=== PATIENT | male | born 1965 | race Caucasian/White ===

== ENCOUNTER 2023-05-22 23:22 | Inpatient (IN) ==
--- OUTSIDE RECORDS SUMMARY | 2023-05-22 23:25 | External Medical Summary | Summary of Care ---
Author Name Unknown Organization [facility] Address [address] [facility] [place] [address] Phone [phone] Care Team Providers Care Pre Algebra Teacher Name Role Phone Dionicio Foss MD Primary Care P rovider Reason for Visit * Reason Comments Cough Productive. Started 3-4 days ago Sore Throat Ear Pain Right ear pain and f eels clogged. Conjunctivitis Bilateral eyes caked with green matter yesterday and today Encounter Details Date Type Department Care Team (Latest Contact Info) Description 01/17/2023 10:20 AM EDT Office Visit [facility] [address] [place] [address] Jenny Womack PA-C [address] [place] [address] Single episode of hypertension*; Acute conjunctivitis, unspecified acute conjunctivitis type, unspecified laterality; Upper respiratory tract infection, unspecified type; Acute sinusitis, recurrence not specified, unspecified location Allergies Active Allergy Reactions Criticality Noted Date Comments Amoxicillin Rash 05/21/2016 Tooth infection and after a few doses broke out in a rash documented as of this encounter (statuses as of 01/17/2023) Medications Medication Sig Dispensed Refills Start Date End Date Status Sildenafil Citrate 20 MG Oral Tablet (Revatio) May take up to 5 tabs daily. 90 Tablet 6 01/21/2022 Active Erythromycin 5 MG/GM Ophthalmic OintmentIndications :Acute conjunctivitis, unspecified acute conjunctivitis type, unspecified laterality Instill into eye 4 times a day for 10 days. Apply to affected eye(s) until redness and discharge resolved. 1 g 0 01/17/2023 3 Active Doxycycline Hyclate 100 MG Oral CapsuleIndications: Acute sinusitis, recurrence not specified, unspecified location Take 1 Capsule by mouth in the morning and 1 Capsule before bedtime. Do all this for 7 days. Until gone.. 14 Capsule 0 01/17/2023 3 Active methylPREDNISolone 4 MG Oral Tablet Therapy Pack (Medrol Dosepack)Indication s:Acute sinusitis, recurrence not specified, unspecified location follow package directions 21 Tablet 0 01/17/2023 Active Varenicline Tartrate 0.5 MG X 11 & 1 MG X 42 OralIndications:Cig arette nicotine dependence with other nicotine-induced disorder Take as directed on box. 1 Each 0 01/01/2022 3 Discontinue d(Medicatio n List Clean Up) Varenicline Tartrate 1 MG Oral TabletIndications:C igarette nicotine dependence with other nicotine-induced disorder Take by mouth 1 Tablet in the morning AND 1 Tablet before bedtime. As directed on box.. 60 Tablet 4 01/01/2022 3 Discontinue d(Medicatio n List Clean Up) Cyclobenzaprine HCl 10 MG Oral Tablet (Flexeril)Indicatio ns:DDD (degenerative disc disease), cervical,Central stenosis of spinal canal TAKE 1 TABLET BY MOUTH TWICE DAILY NEEDED FOR MUSCLE SPASMS 60 Tablet 5 06/07/2022 3 Discontinue d(Medicatio n List Clean Up) methylPREDNISolone 4 MG Oral Tablet Therapy Pack (Medrol Dosepack)Indication s:ETD (Eustachian tube dysfunction), right follow package directions 21 Tablet 0 10/12/2022 3 Discontinue d(Medicatio n List Clean Up) Fluticasone Propionate 50 MCG/ACT Nasal Suspension (Flonase)Indication s:ETD (Eustachian tube dysfunction), right Administer 2 Sprays into each nostril in the morning. 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 12/31/2020 Nicotine dependence 12/31/2020 Erectile dysfunction after radical prostatectomy 12/31/2020 Malignant neoplasm of prostate 06/25/2019 Cancer Staging:Pathologic stage from 09/12/2019:Stage IIIB(pT3b, pN0, cM0, PSA: 7.5, Grade Group: 3) - Signed by Lc Sutton MD on 07/13/2021 Clinical: Unsigned Tobacco use disorder 10/23/2010 ADVANCE DIRECTIVE INFORMATION 07/20/2006 Overview: Pt declines documented as of this encounter (statuses as of 01/17/2023) Immunizations Name Administration Dates Next Due COVID-19 mRNA, LNP-s, No Pre serve, 2-Dose Series (Moderna) 06/03/2020,05/06/2020 Pneumococcal Polysaccharide PPV23 (Pneumovax) 06/30/2020 SEASONAL INFLUENZA, PF, 6 M & Above, IM , (FLULAVAL or FLUZONE) 01/01/2022,12/31/2020,02/14/2019 TDAP (age 10 and older)(Boostrix) 07/15/2014 Zoster Vaccine Recombinant (Shingrix) 12/31/2020 ,06/30/2020 documented as of this encounter Social History Tobacco Use Types Packs/Day Years Used Date Smoking Tobacco: Every Day Cigarettes 1 30 Smokeless Tobacco: Former Quit: 1999 Tobacco Cessation:Ready to Q uit: No; Counseling Given: No Alcohol Use Standard Drinks/Week Comments Yes 0 (1 standard drink = 0.6 oz pur e alcohol) social Sex and Gender Information Value Date Recorded Sex Assigned at Not on file Gender Identity Not on file Sexual Orientation Not on file Job Start Date Occupation Industry Not on file Not on file Not on file documented as of this encounter Last Filed Vital Signs Vital Sign Reading Time Taken Comments Blood Pressure 150/90 01/17/2023 10:24 AM EDT Pulse 94 01/17/2023 10:24 AM EDT Temperature 36.9 C (98.4 F) 01/17/2023 10:24 AM E DT Respiratory Rate 20 01/17/2023 10:24 AM EDT Oxygen Saturation 99% 01/17/2023 10:24 AM EDT Inhaled Oxygen Concentration - - Weight 75.8 kg (167 lb 1.1 oz) 01/17/2023 10:24 AM EDT Height - - Body Mass Index 26.17 11/27/2021 2:12 PM EDT documented in this encounter Functional Status Functional Status Response Date of Assess ment Are you deaf or do you have serious difficulty h earing? No 08/10/2019 Are you blind or do you have serious difficulty seeing, even when wearing glasses? No 08/10/2019 Do you have serious difficul ty walking or climbing stairs? (5 years old or older) No 08/10/2019 Do you have difficulty dress ing or bathing? (5 years old or older) No 08/10/2019 Because of a physical, menta l, or emotional condition, do you have difficulty doing errands alone such as visiting a doctor s office or shopping? (15 years old or older) No 08/10/19 20 Cognitive Status Response Date of Assessm ent Because of a physical, menta l, or emotional condition, do you have serious difficulty concentrating, remembering, or making decisions? (5 years old or older No 08/10/2019 documented as of this encounter Progress Notes * Jenny Womack PA-C - 01/17/2023 10:46 AM EDT Subjective: Leo Mercer is a 57 year old male. Chief Complaint Patient presents with Cough Productive. Started 3-4 days ago Sore Throat Ear Pain Right ear pain and feels clogged. Conjunctivitis Bilateral eyes caked with green matter yesterday and today HPI: Patient presents today for acute visit URI symptoms began 5 days ago with sore throat. Productive cough with green sputum Denies fevers or chills Pain in right ear Patient reports discharge from left eye this morning. Denies any visual changes or pain with extraocular motion. Reports symptoms feel similar to sinus infection in spring Patient reports symptoms, particularly sinus pressure have gotten progressively worse. Has been taking mucinex with minimal relief Denies N/V/D. Sick contacts: none known Patient reports he is soon leaving for hunting PMH: Patient Active Problem List Diagnosis Code ADVANCE DIRECTIVE INFORMATION Tobacco use disorder F17.200 Malignant neoplasm of prostate (HCC) C61 Traumatic amputation of tip of finger S68.119A Ganglion cyst of wrist, left M67.432 Spondylosis of cervical region without myelopathy or radiculopathy M47.812 Nicotine dependence F17.200 Erectile dysfunction after radical prostatectomy N52.31 Overweight (BMI 25.0-29.9) E66.3 Hiatal hernia K44.9 History of radical prostatectomy Z90.79 Current Outpatient Medications Medication Sig Dispense Refill Sildenafil Citrate 20 MG Oral Tablet (Revatio) May take up to 5 tabs daily. 90 Tablet 6 No current facility-administered medications for this visit. Review of patient's allergies indicates: Allergen Reactions Amoxicillin Rash Tooth infection and after a few doses broke out in a rash Objective: BP 150/90 | Pulse 94 | Temp 36.9 C (98.4 F) (Infrared ) | Resp 20 | Wt 75.8 kg (167 lb 1.1 oz) | SpO2 99% | BMI (P) 26.17 kg/m | BSA (P) 1.89 m Head: Normocephalic, No masses, lesions, tenderness or abnormalities Nose: no mucosal erythema, no mucosal edema, no purulent discharge Oropharynx: no exudate, no erythema, lips, buccal mucosa, and tongue normal, and mucous membranes are moist Ears: L TM clear with good light reflex. R TM slightly erythematous with good light reflex. Neck: supple, no adenopathy, thyroid normal size, non-tender, without nodularity Heart: regular rate & rhythm, no murmur, and no gallops Lungs: chest symmetric with normal AP diameter, no chest deformities noted, no chest wall tenderness, lungs clear to auscultation ASSESSMENT: Single episode of hypertension (Primary) Acute conjunctivitis, unspecified acute conjunctivitis type, unspecified laterality - Erythromycin 5 MG/GM Ophthalmic Ointment; Instill into eye 4 times a day for 10 days. Apply to affected eye(s) until redness and discharge resolved. Upper respiratory tract infection, unspecified type Acute sinusitis, recurrence not specified, unspecified location - Doxycycline Hyclate 100 MG Oral Capsule; Take 1 Capsule by mouth in the morning and 1 Capsule before bedtime. Do all this for 7 days. Until gone.. - methylPREDNISolone 4 MG Oral Tablet Therapy Pack (Medrol Dosepack); follow package directions Follow Up: Return if symptoms worsen or fail to improve, for BP Check in 2 Weeks. | For: BP Check in 2 Weeks Plan: Symptoms consistent with acute sinusitis. We will treat with doxycycline as patient has allergy to amoxicillin. Patient reports he is soon leaving for a hunting trip and is requesting steroid as well. Medrol Dosepak ordered. Given patient's eye discharge, we will give her erythromycin. Strict follow-up instructions given. Patient hypertensive in office today. He denies any history of hypertension. This may be due to hisillness. Encouraged patient to check BP at home and notify us if persistently high. Patient to schedule for BP check in 2 weeks. Patient declines to schedule low dose CT for lung cancer screening at this time. Jenny Womack PA-C documented in this encounter Nursing Notes * Aurora Bhatia LPN - 01/17/2023 10:25 AM EDT The patient has been properly identified by confirmation of name and date of . Chief Complaint Patient presents with Cough Productive. Started 3-4 days ago Sore Throat Ear Pain Right ear pain and feels clogged. Conjunctivitis Bilateral eyes caked with green matter yesterday and today Denies fever or chills Using Mucinex and Tylenol Patient has been verbally educated on the need or importance of Immunizations: pnx,flu documented in this encounter Plan of Treatment Upcoming Encounters Date Type Department Care Team (Late st Contact Info) Description 03/04/2023 12:00 PM EST Telemedicine Urology, [place] [address] [place] [address] Ray Wong PA-C [address] [place] [address] Scheduled Procedures Name Priority Associated Diagnoses Date/Ti me COLONOSCOPY FLEXIBLE PROXIMA L DIAGNOSTIC Recall Encounter for screening colonoscopy Health Maintenance Due Date Last Done Comments Hepatitis B (1 of 3 - 3-dose series) 1964 Cologuard 2009 Fecal Occult Blood Test 2009 Sigmoidoscopy 2009 LUNG CANCER SCREENING - USE SMARTSET 52755 2014 Pneumococcal Vaccine: Pediatrics (0 to 5 Years) and At-Risk Patients (6 to 64 Years) (2 - PCV) 06/30/2021 06/30/2020 COVID-19 Vaccine (3 - 2022- season) 2022 06/03/2020, 05/06/2020 Influenza Vaccine (FLU shot) (#1) 2022 01/01/2022, 12/31/2020, 02/14/2019 Depression Screening 01/01/2023 01/01/2022 Diabetes Screening 01/01/2024 12/31/2020, 0 08/11/2019, 08/10/2019, Additional history exists DTaP,Tdap,and Td Vaccines (2 - Td or Tdap) 07/15/2024 07/15/2014 Lipid Panel 12/31/2025 12/31/2020, 11/27, 08/19/2011, Additional history exists Colonoscopy 01/05/2026 01/06/2016, 01/06/2016 Colorectal Cancer Screening 01/05/2026 Zoster Vaccines Completed 12/31/2020, 06/30/2020 GARDASIL-HPV IMMUNIZATION SERIES Aged Out No longer eligible based on patient's age to complete this topic MENINGOCOCCAL (MENACTRA/MENVEO) Aged Out No longer eligible based on patient's age to complete this topic documented as of this encounter Medical Devices Not on filedocumented as of this encounter Visit Diagnoses Diagnosis Single episode of hypertension- Primary Unspecified essential hypertension Acute conjunctivitis, unspecified acute conjunctivitis type, unspecified laterality Upper respiratory tract infection, unspecified type Acute sinusitis, recurrence not specified, unspecified location documented in this encounter Advance Directives Latest Code Status on File Code Status Date Activated Date Inactivated Comments Full Code 08/10/2019 1:48 PM 08/11/2019 6:39 PM Question Answer Comments Discussion of Advance Direct sal occurred with: Not Discussed Care Teams Pre Algebra Teacher Relationship Specialty Start Date End Date Dionic[place] [address] PCP - General Family Medicine 11/27/21 documented as of this encounter"
--- OUTSIDE RECORDS SUMMARY | 2023-05-22 23:25 | External Medical Summary ---
Author Name Unknown Address Unknown Organization K01:[facility] [address] [place] [address] Laboratory Report Ordering Provider Test Date Status MCKINLEY RECIO 03/01/2023 09:19:06 Final Observation Date Value Abnormality Reference (Units ) Status PSA 03/01/2023 09:19:06 0.02 <3.10 (ng/ mL) Final Performing Location [facility] [address] [place] [address]
--- OUTSIDE RECORDS SUMMARY | 2023-05-22 23:25 | External Medical Summary | Summary of Care ---
Author Name Unknown Organization [facility] Address [address] [facility] [place] [address] Phone [phone] Care Team Providers Care Engine Emission Technician Name Role Phone Dionicio Foss MD Primary Care P rovider Reason for Visit * Reason Comments Acute C/o sore throat, con gestion and slight cough x 3 days.No fever or chills.Using Mucinex today. Encounter Details Date Type Department Care Team ([facility] Contact Info) Description 02/24/2023 1:10 PM EST Office Visit [address] [address] Madelyn Watson PA-C [address] [place] [address] [id number] Sinobronchitis* Allergies Active Allergy Reactions Criticality Noted Date Comments Amoxicillin Rash 05/21/2016 Tooth infection and after a few doses broke out in a rash documented as of this encounter (statuses as of 02/24/2023) Medications Medication Sig Dispensed Refills Start Date End Date Status Sildenafil Citrate 20 MG Oral Tablet (Revatio) May take up to 5 tabs daily. 90 Tablet 6 01/21/2022 Active Ciprofloxacin HCl 500 MG Oral Tablet (Cipro)Indication s:Sinobronchitis Take 1 Tablet by mouth in the morning and 1 Tablet before bedtime. Do all this for 10 days. 20 Tablet 0 02/24/2023 03/06/2023 Active methylPREDNISolon e 4 MG Oral Tablet Therapy Pack (Medrol Dosepack)Indicati ons:Acute sinusitis, recurrence not specified, unspecified location follow package directions 21 Tablet 0 01/17/2023 02/24/2023 Discontinue d(Medicatio n List Clean Up) documented as of this encounter (statuses as of 02/24/2023) Active Problems Problem Noted Date Diagnosed Date [...] as of this encounter (statuses as of 02/24/2023) Immunizations Name Administration Dates Next Due COVID-19 [...] = 0.6 oz pur e alcohol) social PHQ-2 Answer Date Recorded PHQ Adult Total Score 0 01/01/2022 Hunger Vital Sign Answer Date Recorded Worried About Running Out of Food in the Last Ye ar Never true 04/16/2019 Ran Out of Food in the Last Year Never true 04/16/2019 Sex and Gender Information Value Date Recorded Sex Assigned at Not on file Gender Identity Not on file Sexual Orientation Not on file Job Start Date Occupation Industry Not on file Not on file Not on file documented as of this encounter Last Filed Vital Signs Vital Sign Reading Time Taken Comments Blood Pressure 160/96 02/24/2023 6:05 PM EST Pulse 92 02/24/2023 6:05 PM EST Temperature 36.7 C (98.1 F) 02/24/2023 6:05 PM ES T Respiratory Rate 18 02/24/2023 6:05 PM EST Oxygen Saturation 99% 02/24/2023 6:05 PM EST Inhaled Oxygen Concentration - - Weight 77.3 kg (170 lb 6.4 oz) 02/24/2023 6:05 P M EST Height - - Body Mass Index 26.69 11/27/2021 2:12 PM EDT documented in this [...] or making decisions? (5 years old or older) No 08/10/2019 documented as of this encounter Progress Notes * Madelyn Watson PA-C - 02/24/2023 6:16 PM EST Images from the original note were not included. History of Present Illness Leo Mercer is a 57 year old male that presents for Acute (C/o sore throat, congestion and slight cough x 3 days./No fever or chills./Using Mucinex today. ) Pt states that he started with sore throat last . Pt then started with cough and congestion. Pt states that he is having productive cough as well as sinus pain and pressure. Pt states that hedid have a fever, but that seems to have improved. Pt denies any shortness of breath. Pt does have a headache. Pt did take Mucinex today. Pt was seen on 02/01 for similar symptoms and given Cipro and Prednisone which seemed to help but symptoms now back. Ciprofloxacin HCl 500 MG Oral Tablet (Cipro) Sildenafil Citrate 20 MG Oral Tablet (Revatio) Review of patient's allergies indicates: Allergen Reactions Amoxicillin Rash Tooth infection and after a few doses broke out in a rash Patient Active Problem List Diagnosis Date Noted Overweight (BMI 25.0-29.9) [E66.3] 01/01/2022 Hiatal hernia [K44.9] 01/01/2022 History of radical prostatectomy [Z90.79] 01/01/2022 Traumatic amputation of tip of finger [S68.119A] 12/31/2020 Ganglion cyst of wrist, left [M67.432] 12/31/2020 Spondylosis of cervical region without myelopathy or radiculopathy [M47.812] 12/31/2020 Nicotine dependence [F17.200] 12/31/2020 Erectile dysfunction after radical prostatectomy [N52.31] 12/31/2020 Malignant neoplasm of prostate (HCC) [C61] 06/25/2019 Tobacco use disorder [F17.200] 10/23/2010 ADVANCE DIRECTIVE INFORMATION 07/20/2006 Pt declines Social History Socioeconomic History Marital status: Single Spouse name: Not on file Number of children: Not on file Years of education: Not on file Highest education level: Not on file Occupational History Not on file Tobacco Use Smoking status: Every Day Packs/day: 1.00 Years: 30.00 Additional pack years: 0.00 Total pack years: 30.00 Types: Cigarettes Smokeless tobacco: Former Quit date: 1999 Vaping Use Vaping Use: Never used Substance and Sexual Activity Alcohol use: Yes Comment: social Drug use: No Sexual activity: Yes Partners: Female Other Topics Concern Not on file Social History Narrative Not on file Social Determinants of Health Financial Resource Strain: Not on file Food Insecurity: No Food Insecurity (04/16/2019) Hunger Vital Sign Worried About Running Out of Food in the Last Year: Never true Ran Out of Food in the Last Year: Never true Transportation Needs: Not on file Physical Activity: Not on file Stress: Not on file Social Connections: Not on file Intimate Partner Violence: Not on file Housing Stability: Not on file Past Surgical History: Procedure Laterality Date BILAT TOT PEL LYMPHADENECTOMY N/A 08/10/2019 ROBOTIC LAPAROSCOPIC TOTAL PELVIC LYMPHADENECTOMY performed by Lc Sutton MD at [facility] COLONOSCOPY, DIAGNOSTIC (RECTUM) 01/06/2016 normal, repeat 10 yrs/COLONOSCOPY FLEXIBLE PROXIMAL DIAGNOSTIC performed by Dee Kaur DO at [facility] PROSTATECTOMY, RETROPUBIC RADICAL, LAP N/A 08/10/2019 ROBOTIC LAPAROSCOPIC PROSTATECTOMY RETROPUBIC RADICAL performed by Lc Sutton MD at [place] [facility] No family history on file. Review of Systems Constitutional: Positive for fatigue and fever. HENT: Positive for congestion, postnasal drip, sinus pressure and sinus pain. Respiratory: Positive for cough and chest tightness. Cardiovascular: Negative. Gastrointestinal: Negative. Genitourinary: Negative. Physical Exam BP 160/96 | Pulse 92 | Temp 36.7 C (98.1 F) (Infrared ) | Resp 18 | Wt 77.3 kg (170 lb 6.4 oz) | SpO2 99% | BMI (P) 26.69 kg/m | BSA (P) 1.91 m Physical Exam Constitutional: Appearance: Normal appearance. HENT: Right Ear: Tympanic membrane normal. Left Ear: Tympanic membrane normal. Nose: Congestion present. Mouth/Throat: Pharynx: Posterior oropharyngeal erythema present. Cardiovascular: Rate and Rhythm: Normal rate and regular rhythm. Pulmonary: Effort: Pulmonary effort is normal. Breath sounds: Normal breath sounds. Neurological: Mental Status: He is alert. Recheck 144/84 I have reviewed most recent labs BMP Assessment and Plan Sinobronchitis - Ciprofloxacin HCl 500 MG Oral Tablet (Cipro); Take 1 Tablet by mouth in the morning and 1 Tablet before bedtime. Do all this for 10 days. Lots of fluids, rest and OTC plain Mucinex. Wrap-Up Time: I spent a total of 20-29 minutes (exact time 20 mins) on the date of service in preparation, delivery, and documentation of the care provided to Leo Mercer excluding any time spent in the performance of separately billed services. documented in this encounter Nursing Notes * Aurora Bhatia LPN - 02/24/2023 6:05 PM EST The patient has been properly identified by confirmation of name and date of . Chief Complaint Patient presents with Acute C/o sore throat, congestion and slight cough x 3 days. No fever or chills. Using Mucinex today. Patient has been verbally educated on the need or importance of Immunizations: hepb,flu documented in this encounter Plan of Treatment Upcoming Encounters Date Type Department Care Team (Late st Contact Info) Description 03/04/2023 12:00 PM EST Telemedicine Urology, [place] [address] [place] [address] Ray Wong PA-C [address] [place], [place] [phone] Scheduled Procedures Name Priority Associated Diagnoses Date/Ti me COLONOSCOPY FLEXIBLE PROXIMA L DIAGNOSTIC Recall Encounter for screening colonoscopy Health Maintenance Due Date Last Done Comments Hepatitis B (1 of 3 - 3-dose series) 1965 Cologuard 2009 Fecal Occult Blood Test 2009 Sigmoidoscopy 2009 LUNG CANCER SCREENING - USE SMARTSET 75059 2014 Pneumococcal Vaccine: Pediatrics (0 to 5 Years) and At-Risk Patients (6 to 64 Years) (2 - PCV) 06/30/2021 06/30/2020 COVID-19 Vaccine (3 - 2022-24 season) 2022 06/03/2020, 05/06/2020 Influenza Vaccine (FLU [...] as of this encounter Visit Diagnoses Diagnosis Sinobronchitis- Primary Unspecified sinusitis (chronic) documented in this encounter Advance Directives Latest Code Status on File Code Status Date Activated Date Inactivated Comments Full Code 08/10/2019 1:48 PM 08/11/2019 6:39 PM Question Answer Comments Discussion of Advance Direct sal occurred with: Not Discussed Care Teams Engine Emission Technician Relationship Specialty Start Date End Date Dionicio Foss MD [address] [place] [address] [place] [address] PCP - General Family Medicine 11/27/21 documented as of this encounter"
--- OUTSIDE RECORDS SUMMARY | 2023-05-22 23:25 | External Medical Summary | Summary of Care ---
Author Name Unknown Organization [facility] Address [address] [place] [address] Phone [phone] Care Team Providers Care High Scaler Name Role Phone Dionicio Parkinson MD Primary Care P rovider Encounter Details Date Type Department Care Team (Late st Contact Info) Description 03/04/2023 12:00 PM EST [facility] [address], [place] [id number] Ray Wong PA-C [address], [place] [id number] Prostate cancer (HCC)* Allergies Active Allergy Reactions Criticality Noted Date Comments Amoxicillin Rash 05/21/2016 Tooth infection and after a few doses broke out in a rash documented as of this encounter (statuses as of 03/06/2023) Medications Medication Sig Dispensed Refills Start Date End Date Status Sildenafil Citrate 20 MG Oral Tablet (Revatio) May take up to 5 tabs daily. 90 Tablet 6 01/21/2022 Active Ciprofloxacin HCl 500 MG Oral Tablet (Cipro)Indications:S inobronchitis Take 1 Tablet by mouth in the morning and 1 Tablet before bedtime. Do all this for 10 days. 20 Tablet 0 02/24/2023 03/06/2023 Active documented as of this encounter (statuses as of 03/06/2023) Active Problems Problem Noted Date Diagnosed Date [...] as of this encounter (statuses as of 03/06/2023) Immunizations Name Administration Dates Next Due COVID-19 [...] 1 30 Smokeless Tobacco: Former Quit: 1999 Alcohol Use Standard Drinks/Week Comments Yes 0 [...] on file documented as of this encounter Functional Status Functional Status Response [...] as of this encounter Progress Notes * Ray Wong PA-C - 03/04/2023 12:04 PM EST After connecting to the patient via telephone, the patient was identified by name and date of . Patient was then informed that this was a telephone call only visit. The patient agreed to participate. Visit Disposition: Routine follow-up Total call duration was 7 minutes. UROLOGY PROGRESS NOTE Name: Leo Mercer Location: Telephone Date: 03/04/2023 Time: 12:04 PM PCP: DIONICIO PARKINSON [address] [place] [id number] Leo Mercer is a 57 year old male RTC in F/U for prostate cancer. I extensively reviewed the patient's record prior to the appointment. HPI: "The patient is s/p RALP/PLND in 07/2019 for [id number] GG3 prostate adenocarcinoma. PSA has remained undetectable since surgery. He has no urinary incontinence. He has had mixed results with PO PDE5i, and later tried Trimix with episode of priapism with first use. He has used it sparingly since. The patient denies gross hematuria, dysuria, or bothersome LUTS." Interval: 08/2022: Presents today for routine 6m follow up PSA recheck. Has been doing well, really no interval change in his medical history. PSA undetectable today. Still having some ED issues, managing with sildenafil with moderate results. Not interested in ICI at this time. Denies hematuria or UTI. 02/2023: Presents today for routine 6m follow up PSA recheck. Has been doing well, really no concerns today. Very minimal FLORENCIO, at baseline from previous visits. Not interested in treating ED at this time. PSA undetectable. No past medical history on file. Past Surgical History: Procedure Laterality Date BILAT TOT PEL LYMPHADENECTOMY N/A 08/10/2019 ROBOTIC LAPAROSCOPIC TOTAL PELVIC LYMPHADENECTOMY performed by Lc Sutton MD at [facility] COLONOSCOPY, DIAGNOSTIC (RECTUM) 01/06/2016 normal, repeat 10 yrs/COLONOSCOPY FLEXIBLE PROXIMAL DIAGNOSTIC performed by Dee Kaur DO at [facility] PROSTATECTOMY, RETROPUBIC RADICAL, LAP N/A 08/10/2019 ROBOTIC LAPAROSCOPIC PROSTATECTOMY RETROPUBIC RADICAL performed by Lc Sutton MD at [place] [facility] Social History Socioeconomic History Marital status: Single [...] on file Housing Stability: Not on file No family history on file. Current Outpatient Medications Medication Sig Dispense Refill Sildenafil Citrate 20 MG Oral Tablet (Revatio) May take up to 5 tabs daily. 90 Tablet 6 Ciprofloxacin HCl 500 MG Oral Tablet (Cipro) Take 1 Tablet by mouth in the morning and 1 Tablet before bedtime. Do all this for 10 days. 20 Tablet 0 No current facility-administered medications for this visit. Review of patient's allergies indicates: Allergen Reactions Amoxicillin Rash Tooth infection and after a few doses broke out in a rash ROS EXAM: CONSTITUTIONAL: No change in weight, No weakness, No fatigue and No fevers, sweats, or chills PULMONARY: No cough, No wheezing, No shortness of breath and No recent change in breathing CARDIOVASCULAR: No chest pain, No shortness of breath, No dyspnea on exertion, No edema GASTROINTESTINAL: No abdominal pain, No significant change in appetite and No nausea, vomiting, diarrhea, or constipation MALE: See HPI NEUROLOGIC: Normal balance and No weakness PHYSICAL EXAM: Telephonic visit Lab Results Component Value Date/Time PSA - [facility] 0.02 03/01/2023 09:19 AM PSA - [facility] <0.02 08/06/2022 07:57 AM PSA - [facility] <0.02 01/14/2022 07:52 AM PSA - [facility] <0.02 07/10/2021 08:00 AM PSA - [facility] <0.02 12/31/2020 08:31 AM PSA - [facility] <0.02 12/12/2020 08:49 AM PSA - [facility] <0.02 06/12/2020 09:06 AM PSA - [facility] <0.02 03/04/2020 07:42 AM PSA - [facility] <0.02 11/29/2019 07:52 AM PSA - [facility] <0.02 09/26/2019 08:21 AM PSA - [facility] 7.47 (H) 05/04/2019 09:10 AM I spent a total of 10-19 minutes (exact time 15 mins) on the date of service in preparation, delivery, and documentation of the care provided to Leo Mercer excluding any time spent in the performance of separately billed services. Impression: 1. 57 year old male with prostate cancer Plan: Discussed future management of prostate cancer. PSA has been undetectable since surgery, really no concerns at this time otherwise. Minimal FLORENCIO at baseline, may discuss ED treatment in the future. RTC 6 months with PSA or sooner prn. Pt in agreement. Ray oWng PA-C Department of Urology [facility] 03/04/2023 12:06 PM documented in this encounter Plan of Treatment Upcoming Encounters Date Type Department Care Team (Late st Contact Info) Description 09/09/2023 1:00 PM EDT Office Visit Urology, [place] [address] [place] [address] Ray Wong PA-C [address] [place] [address] Scheduled Orders Name Type Priority Associated Diagnoses Orde r Schedule PSA Lab Routine Prostate cancer (HCC) Expected: 09/03/2023, Expires: Scheduled Procedures Name Priority Associated Diagnoses Date/Ti me COLONOSCOPY FLEXIBLE PROXIMA L DIAGNOSTIC Recall Encounter for screening colonoscopy Health Maintenance Due Date Last Done Comments Hepatitis B (1 of 3 - 3-dose series) 1965 Cologuard 2009 Fecal Occult Blood Test 2009 Sigmoidoscopy 2009 LUNG CANCER SCREENING - USE SMARTSET 83350 2014 Pneumococcal Vaccine: Pediatrics (0 to 5 [...] as of this encounter Visit Diagnoses Diagnosis Prostate cancer (HCC)- Primary Malignant neoplasm of prostate documented in this encounter Advance Directives Latest Code Status on File Code Status Date Activated Date Inactivated Comments Full Code 08/10/2019 1:48 PM 08/11/2019 6:39 PM Question Answer Comments Discussion of Advance Direct sal occurred with: Not Discussed Care Teams High Scaler Relationship Specialty Start Date End Date Dionicio Parkinson MD [address] [place] [address] PCP - General Family Medicine 11/27/21 documented as of this encounter
--- OUTSIDE RECORDS SUMMARY | 2023-05-22 23:25 | External Medical Summary | Summary of Care ---
Author Name Unknown Organization [facility] Address [address] [facility] [place] [address] Phone [phone] Care Team Providers Care Byproducts Supervisor Name Role Phone Dionicio Foss MD Primary Care P rovider Reason for Visit * Reason Comments Congestion Cough Sinus Problem Encounter Details Date Type Department Care Team ([facility] Contact Info) Description 02/01/2023 1:00 PM EST Office Visit [facility] [address] [place] [address] Madelyn Watson PA-C [address] [place] [address] Sinobronchitis* Allergies Active Allergy Reactions Criticality Noted Date Comments Amoxicillin Rash 05/21/2016 Tooth infection and after a few doses broke out in a rash documented as of this encounter (statuses as of 02/01/2023) Medications Medication Sig Dispensed Refills Start Date End Date Status Sildenafil Citrate 20 MG Oral Tablet (Revatio) May take up to 5 tabs daily. 90 Tablet 6 01/21/2022 Active methylPREDNISolone 4 MG Oral Tablet Therapy Pack (Medrol Dosepack)Indicatio ns:Acute sinusitis, recurrence not specified, unspecified location follow package directions 21 Tablet 0 01/17/2023 Active Additional Information Patient not taking.Reported on 02/01/2023 Ciprofloxacin HCl 500 MG Oral Tablet (Cipro)Indications :Sinobronchitis Take 1 Tablet by mouth in the morning and 1 Tablet before bedtime. Do all this for 10 days. 20 Tablet 0 02/01/2023 02/11/2023 Active predniSONE 20 MG Oral Tablet (Deltasone)Indicat ions:Sinobronchiti s Take 2 Tablets by mouth in the morning for 5 days. 10 Tablet 0 02/01/2023 02/06/2023 Active documented as of this encounter (statuses as of 02/01/2023) Active Problems Problem Noted Date Diagnosed Date [...] as of this encounter (statuses as of 02/01/2023) Immunizations Name Administration Dates Next Due COVID-19 [...] Sign Reading Time Taken Comments Blood Pressure 142/86 02/01/2023 12:58 PM EST Pulse 82 02/01/2023 12:58 PM EST Temperature 36.9 C (98.5 F) 02/01/2023 12:[address] Respiratory Rate 16 02/01/2023 12:58 PM EST Oxygen Saturation 98% 02/01/2023 12:58 PM EST Inhaled Oxygen Concentration - - Weight 75.8 kg (167 lb) 02/01/2023 12:58 PM EST Height - - Body Mass Index 26.16 11/27/2021 2:12 PM EDT documented in this [...] Progress Notes * Madelyn Watson PA-C - 02/01/2023 1:20 PM EST Images from the original note were not included. History of Present Illness Leo Mercer is a 57 year old male that presents for Congestion, Cough, and Sinus Problem Pt states started with cough congestion and sinus pressure on Tuesday. Pt states that he does not seem to have any chest congestion. Pt states that he has a lot of sinus pressure. Pt denies fever. Pt was treated for Sinus infection on 01/17 with doxycycline and medrol dose bessy. Pt states that he felt much better but states that it started again on Tuesday. Cough Associated symptoms include postnasal drip. Sinus Problem Associated symptoms include congestion, coughing and sinus pressure. Ciprofloxacin HCl 500 MG Oral Tablet (Cipro) predniSONE 20 MG Oral Tablet (Deltasone) Sildenafil Citrate 20 MG Oral Tablet (Revatio) methylPREDNISolone 4 MG Oral Tablet Therapy Pack (Medrol Dosepack) Review of patient's allergies indicates: Allergen Reactions [...] LYMPHADENECTOMY performed by Lc Sutton MD at [facility] COLONOSCOPY, DIAGNOSTIC (RECTUM) 01/06/2016 normal, repeat 10 yrs/COLONOSCOPY FLEXIBLE PROXIMAL DIAGNOSTIC performed by Dee Kaur DO at [facility] PROSTATECTOMY, RETROPUBIC RADICAL, LAP N/A 08/10/2019 ROBOTIC LAPAROSCOPIC PROSTATECTOMY RETROPUBIC RADICAL performed by Lc Sutton MD at [place] [facility] No family history on file. Review of Systems HENT: Positive for congestion, postnasal drip and sinus pressure. Respiratory: Positive for cough. Cardiovascular: Negative. Gastrointestinal: Negative. Genitourinary: Negative. Physical Exam BP 142/86 | Pulse 82 | Temp 36.9 C (98.5 F) | Resp 16 | Wt 75.8 kg (167 lb) | SpO2 98% | BMI (P) 26.16 kg/m | BSA (P) 1.89 m Physical Exam Constitutional: Appearance: Normal appearance. HENT: Right Ear: Tympanic membrane is injected. Mouth/Throat: Mouth: Mucous membranes are dry. Pharynx: Oropharynx is clear. Cardiovascular: Rate and Rhythm: Normal rate and regular rhythm. Pulmonary: Effort: Pulmonary effort is normal. Breath sounds: Normal breath sounds. Neurological: Mental Status: He is alert. I have reviewed most recent labs None Assessment and Plan Sinobronchitis - Ciprofloxacin HCl 500 MG Oral Tablet (Cipro); Take 1 Tablet by mouth in the morning and 1 Tablet before bedtime. Do all this for 10 days. - predniSONE 20 MG Oral Tablet (Deltasone); Take 2 Tablets by mouth in the morning for 5 days. Lots of fluids. Continue OTC Mucinex. Wrap-Up Time: I spent a total of 20-29 minutes (exact time 20 mins) on the date of service in preparation, delivery, and documentation of the care provided to Leo Mercer excluding any time spent in the performance of separately billed services. documented in this encounter Nursing Notes * Eric Lindquist LPN - 02/01/2023 12:59 PM EST The patient has been properly identified by confirmation of name and date of . Chief Complaint Patient presents with Congestion Cough Sinus Problem documented in this encounter Plan of Treatment Upcoming Encounters Date Type Department Care Team (Late st Contact Info) Description 03/04/2023 12:00 PM EST Telemedicine Urology, [place] [address] [place] [address] Ray Wong PA-C [address] [place], [place] [phone] Scheduled Procedures Name Priority Associated Diagnoses Date/Ti me COLONOSCOPY FLEXIBLE PROXIMA L DIAGNOSTIC Recall Encounter for screening colonoscopy Health Maintenance Due Date Last Done Comments Hepatitis B (1 of 3 - 3-dose series) 1965 Cologuard 2009 Fecal Occult Blood Test 2009 Sigmoidoscopy 2009 LUNG CANCER SCREENING - USE SMARTSET 43232 2014 Pneumococcal Vaccine: Pediatrics (0 to 5 [...] sal occurred with: Not Discussed Care Teams Byproducts Supervisor Relationship Specialty Start Date End Date Dionicio Foss MD [address] [place], [place] [address] [id number] PCP - General Family Medicine 11/27/21 documented as of this encounter"
--- OUTSIDE RECORDS SUMMARY | 2023-05-22 23:25 | External Medical Summary | Summary of Care ---
Author Name Unknown Organization [facility] Address [address] [facility] [place] [address] Phone [phone] Care Team Providers Care Car Dropper Name Role Phone Dionicio Foss MD Primary Care P rovider Reason for Visit * Reason Comments Outpatient Testing Encounter Details Date Type Department Care Team ([facility] st Contact Info) Description 03/01/2023 9:00 AM [facility] Laboratory Laboratory Patient Service [address] [phone] [address] Prostate cancer (HCC) Allergies Active Allergy Reactions Criticality Noted Date Comments Amoxicillin Rash 05/21/2016 Tooth infection and after a few doses broke out in a rash documented as of this encounter (statuses as of 03/01/2023) Medications Medication Sig Dispensed Refills Start Date [...] as of this encounter (statuses as of 03/01/2023) Active Problems Problem Noted Date Diagnosed Date [...] as of this encounter (statuses as of 03/01/2023) Immunizations Name Administration Dates Next Due COVID-19 [...] No 08/10/2019 documented as of this encounter Plan of Treatment Upcoming Encounters Date Type Department Care Team (Late st Contact Info) Description 03/04/2023 12:00 PM EST Telemedicine Urology, [place] [address] [place] [address] Ray Wong PA-C [address] [place] [address] Pending Results Name Type Priority Associated Diagnoses Date /Time PSA Lab Routine Prostate cancer (HCC) 03/01/2023 9:19 AM EST Scheduled Procedures Name Priority Associated Diagnoses Date/Ti me COLONOSCOPY FLEXIBLE PROXIMA L DIAGNOSTIC Recall Encounter for screening colonoscopy Health Maintenance Due Date Last Done Comments Hepatitis B (1 of 3 - 3-dose series) 1965 Cologuard 2009 Fecal Occult Blood Test 2009 Sigmoidoscopy 2009 LUNG CANCER SCREENING - USE SMARTSET 11089 2014 Pneumococcal Vaccine: Pediatrics (0 to 5 [...] this encounter Visit Diagnoses Diagnosis Prostate cancer (HCC) Malignant neoplasm of prostate documented in this encounter Advance Directives Latest Code Status on File Code Status Date Activated Date Inactivated Comments Full Code 08/10/2019 1:48 PM 08/11/2019 6:39 PM Question Answer Comments Discussion of Advance Direct sal occurred with: Not Discussed Care Teams Car Dropper Relationship Specialty Start Date End Date Dionicio Foss MD [address] [place], [place] [address] [id number] PCP - General Family Medicine 11/27/21 documented as of this encounter
[2023-05-22] MEDS: MoRPHine SULFATE 4 MG/ML 1 ML CARP\\VIAL IV STA ×2 (23:41→23:55)
[2023-05-22] MEDS: ONDANSETRON INJ 2 MG/ML 2 ML VIAL IV STA (23:41)
[2023-05-22] MEDS: SODIUM CHLORIDE 0.9% 1,000 ML IV SCH (23:41)
[2023-05-22] MEDS: HEPARIN SOD (PORCINE) 1000 UNIT/ML IV ONE (23:47)
[2023-05-22] MEDS: ASPIRIN 81 MG CHEW PO STA (23:47)
--- NOTE | 2023-05-22 23:49 | Emergency Department Note ---
Impression & Plan Chest pain, ST elevation (STEMI) myocardial infarction ED Provider Note ED Provider Note NAME: KAREN MAURICIO AGE:58 SEX: Male : 1965 ARRIVES VIA: private vehicle INFORMANT: Patient ED PROVIDER(s): Maranda Patton DO CHIEF COMPLAINT: Chest pain HPI: This is a 58-year-old female presents emergency department concern for chest pain. Patient states he said intermittent chest pain all day. He states late this evening it became more constant. He states that it is a heaviness/pressure. He feels some radiation into the proximal bilateral upper extremities as well as some "into the throat". He denies any radiation into the back. at bedside states she was unaware of him having the symptoms through the day until this evening when he complained of not feeling well and appeared pale and sweaty. He states he did feel nauseated but did not vomit. Denies any dizziness or shortness of breath. No recent fevers, chills, or URI symptoms. No prior history of similar symptoms. Patient states he is a smoker daily but does not otherwise have any medical problems or take any medications PAST MEDICAL HISTORY:See Below PAST SURGICAL HISTORY:See Below FAMILY HISTORY:See Below SOCIAL HISTORY:See Below HOME MEDICATIONS:See Below ALLERGIES:See Below VITALS:See Below PHYSICAL EXAMINATION: GENERAL: alert, unwell appearing, well nourished, no distress, non-toxic EYE EXAM: normal conjunctiva, PERRL and EOM's grossly intact OROPHARYNX: no exudate, no erythema, lips, buccal mucosa, and tongue normal and mucous membranes are moist NECK: supple, no nuchal rigidity, no adenopathy, non-tender LUNGS: Clear to auscultation. Normal chest wall mechanics, no w/r/r HEART: no murmurs, S1 normal and S2 normal ABDOMEN: abdomen soft, non-tender, normo-active bowel sounds, no masses, no rebound or guarding. BACK: Back is symmetrical on inspection and there is no deformity, no midline tenderness, no CVA tenderness. SKIN: no rashes, petechiae, orbruising UPPER EXTREMITIES: upper extremities are grossly normal. FROM, nml pulses b/l. LOWER EXTREMITIES: No pitting edema. FROM, nml pulses b/l. NEURO EXAM: Normal sensorium, cranial nerves II-XII grossly intact, normal speech, no facial droop,nogross weakness of arms, no gross weakness of legs. Gross sensation intact. No ataxia. Vital Signs: reviewed and remarkable Differential Diagnosis: acute coronary syndrome, pericarditis, pulmonary embolus, aortic dissection, pneumonia, pneumothorax, musculoskeletal pain, shingles, GERD, GI bleed, as well as others were considered MEDICAL DECISION MAKING: This is a 58-year-old male who presents emergency department through triage due to concern for chest pain. EKG performed and patient urgently placed in a resuscitation room and I was called to bedside due to EKG abnormalities noted. Upon my review of EKG patient appeared to be having STEMI. Patient admitted to ongoing chest pain throughout the day and now worsening symptoms this evening. A heart alert was called. Labs drawn and sent, IV established, EKG and chest x- ray performed bedside interpreted by me. Patient given IV Zofran and IV morphine initially for pain. Due to concern for right heart involvement due to inferior ST elevation and bradycardia, nitro was avoided. Patient given aspirin and IV heparin additionally while awaiting cardiology. Patient states pain only slightly improved with morphine. Patient updated on my concern given findings and need for urgent cardiology evaluation and likely intervention with cardiac catheterization. Interventional cardiology to present to bedside the patient taken urgently to [facility]. Consultation(s): 0460: Dr. Davis now at bedside. ER Treatment Provided: See below Diagnostics Interpreted By Me: -ECG: Sinus bradycardia at 51, normal axis, normal intervals, large ST elevations noted in 2, 3, aVF with additional smaller ST elevations noted in V5 and V6 and reciprocal ST depression noted in aVL, V1 and V2, and mildly in lead I -Cardiac Monitoring: An order was placed for continuous cardiac monitoring. The monitor shows a rate of 56 with sinus bradycardia rhythm. -Laboratory studies: As stated above and show below. -Imaging studies: X-ray Chest: A single view study of the chest was reviewed and was negative for cardiomegaly, focal infiltrate, effusion, pulmonary edema, or wide mediastinum. Triage Nursing Note Reviewed Prior/Outside Records Reviewed Critical care: Critical care of 35 min performed to assess and manage high likelihood of life- threatening STEMI, involving labs and imaging performed with assessment to evaluate chest pain diagnosis with frequent reassessment. This time includes bedside time, treatment discussions with patient/family/consultants, documentation time and excludes procedure time. Past Med/Surg History Medical History (Updated 05/23/23 @ 01:45 by Ted Davis MD, PhD) Cancer of prostate Cervical myofascial pain syndrome Degenerative cervical spinal stenosis Surgical History H/O prostatectomy Family History Mother , age 76 renal failure No problems noted. Father , unknown No problems noted. Sister No problems noted. Social History Smoking Status: Current every day smoker Tobacco Type: Cigarettes Age Started Using Tobacco: 19; packs per day: 1; Cigarettes Per Day: 20; Second Hand Exposure: No; Do You Dip or Chew Tobacco: No; Hx Alcohol Use: Yes Alcohol type: beer Alcohol Intake Frequency Comment: social Hx Substance Use: No Preferred Language: Scottish Communication Ability: Effective Visual Impairment: No Limitations Hearing Ability: Normal Production Consultant Required: No Beliefs That Will Affect Care: None marital status: Single Current Living Situation: Significant Other Current Living Situation Comment: Patient lives with significant other current occupational status: employed 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 Other Information That Helps Us Care for You: No Feels Safe at Home: Yes Safety Concerns: Feels Safe At This Time Childhood Exposure to Second-Hand Smoke: No caffeine: Yes (several cups per day) during the past year weight has: remained stable Dental Care, Regularly: No Physical Activity Frequency: Does not Exercise Seatbelt Use: sometimes Sunscreen Use: No Assistive Devices: Glasses Allergies Allergies Allergy/AdvReac Type Severity Reaction Status Date / Time amoxicillin Allergy Severe rash Verified 05/22/23 23:40 extensive Home Meds Home Medications Medication Instructions Recorded Confirmed No Known Home Medications 05/22/23 05/22/23 Results & Data (ED) Vital Signs Vital Signs - 24 hr 05/22/23 23:25 05/22/23 23:34 05/22/23 23:34 Temperature 36.4 C L Temperature Source Oral Pulse Rate 60 58 L 61 Pulse Rate [Right] Pulse Rate from SpO2 Sensor Respiratory Rate 18 13 Respiratory Effort / Characteristics Non-Labored Spontaneous Respiratory Depth Normal Blood Pressure 150/92 H Blood Pressure [Right Arm] Blood Pressure Mean 111 Blood Pressure Mean [Right Arm] Pulse Oximetry 99 Oxygen Delivery Method Room Air Sepsis Recent Fever Within 48 Hours No Sepsis New/Unexplained Change in Mental Status No Sepsis Action Taken by Nursing No Action Required 05/22/23 23:39 05/22/23 23:39 05/22/23 23:40 Temperature Temperature Source Pulse Rate 56 L Pulse Rate [Right] Pulse Rate from SpO2 Sensor 58 L 80 Respiratory Rate 23 Respiratory Effort / Characteristics Respiratory Depth Blood Pressure 161/95 H Blood Pressure [Right Arm] Blood Pressure Mean 129 Blood Pressure Mean [Right Arm] Pulse Oximetry 97 98 Oxygen Delivery Method Sepsis Recent Fever Within 48 Hours Sepsis New/Unexplained Change in Mental Status Sepsis Action Taken by Nursing 05/22/23 23:50 05/22/23 23:50 05/22/23 23:50 Temperature Temperature Source Pulse Rate 63 Pulse Rate [Right] 65 Pulse Rate from SpO2 Sensor 62 Respiratory Rate 16 29 H Respiratory Effort / Characteristics Non-Labored Spontaneous Respiratory Depth Normal Blood Pressure 162/108 H Blood Pressure [Right Arm] 162/108 H Blood Pressure Mean 129 Blood Pressure Mean [Right Arm] 126 Pulse Oximetry 95 95 Oxygen Delivery Method Room Air Sepsis Recent Fever Within 48 Hours Sepsis New/Unexplained Change in Mental Status Sepsis Action Taken by Nursing 05/22/23 23:51 05/22/23 23:57 05/22/23 23:57 Temperature Temperature Source Pulse Rate Pulse Rate [Right] Pulse Rate from SpO2 Sensor 66 Respiratory Rate Respiratory Effort / Characteristics Respiratory Depth Blood Pressure 167/107 H Blood Pressure [Right Arm] Blood Pressure Mean 143 Blood Pressure Mean [Right Arm] Pulse Oximetry 95 95 Oxygen Delivery Method Room Air Sepsis Recent Fever Within 48 Hours Sepsis New/Unexplained Change in Mental Status Sepsis Action Taken by Nursing 05/23/23 00:00 05/23/23 00:00 Temperature Temperature Source Pulse Rate 69 Pulse Rate [Right] Pulse Rate from SpO2 Sensor 67 Respiratory Rate 20 Respiratory Effort / Characteristics Respiratory Depth Blood Pressure 169/106 H Blood Pressure [Right Arm] Blood Pressure Mean 133 Blood Pressure Mean [Right Arm] Pulse Oximetry 94 Oxygen Delivery Method Sepsis Recent Fever Within 48 Hours Sepsis New/Unexplained Change in Mental Status Sepsis Action Taken by Nursing Laboratory Data 05/23/23 02:08 05/22/23 23:38 Lab Results 05/22/23 Range/Units 23:38 WBC 17.89 H (4.8-10.8) K/ul RBC 5.20 (4.70-6.10) M/uL Hgb 16.3 (14.0-18.0) g/dl Hct 48.7 (42.0-52.0) % MCV 93.7 (80.0-100.0) fL MCH 31.3 (25.0-34.0) pg MCHC 33.5 (32.0-36.0) g/dL RDW Std Deviation 41.7 (36.4-46.3) fL RDW Coeff of Alessandro 12.0 (11.5-14.5) % Plt Count 239 (130-400) K/uL MPV 11.8 (9.4-12.4) fL Neutrophils % (Manual) 36 % Lymphocytes % (Manual) 32 % Monocytes % (Manual) 3 % Eosinophils % (Manual) 5 % Basophils % (Manual) 1 % Neutrophils # (Manual) 6.44 (1.40-6.50) K/uL Total Absolute Neuts 6.44 (1.4-6.5) K/uL Lymphocytes # (Manual) 5.72 H (1.2-3.4) K/uL Total Abs Lymphocytes 9.84 H (1.2-3.4) K/uL Monocytes # (Manual) 0.54 (0.11-0.59) K/uL Eosinophils # (Manual) 0.89 H (0-0.50) K/uL Basophils # (Manual) 0.18 (0-0.2) K/uL Large Granular Lymphs 23 % # Lrg Granular Lymphs 4.11 K/uL RBC Morphology Unremarkable PT 10.3 (9.0-12.0) Seconds INR 0.9 (0.9-1.1) APTT 25 (21-31) Seconds PTT Ratio 0.9 Sodium 140 (136-145) mmol/L Potassium 3.8 (3.5-5.1) mmol/L Chloride 104 (98-107) mmol/L Carbon Dioxide 30 (21-32) mmol/L Anion Gap 6 (3-11) BUN 19 (6-23) mg/dl Creatinine 0.87 (0.6-1.4) mg/dl Est Cr Clr Drug Dosing 85.5 ml/min Est GFR ( Amer) 109.5 ml/min Est GFR (Non-Af Amer) 94.5 ml/min BUN/Creatinine Ratio 21.8 H (10-20) Glucose 148 H (70-99(Fasting)) mg/dl Calcium 9.3 (8.6-10.3) mg/dl Magnesium 2.1 (1.7-2.4) mg/dl Total Bilirubin 0.3 (0.2-1.0) mg/dl AST 17 (13-39) U/L ALT 16 (7-52) U/L Alkaline Phosphatase 84 (34-104) U/L Total Creatine Kinase 105 (30-223) U/L Troponin I High Sens 34.1 H (0-20) pg/ml B-Natriuretic Peptide 12 (0-100) pg/ml Total Protein 7.3 (6.0-8.3) gm/dl Albumin 4.5 (3.4-5.0) gm/dl Globulin 2.8 (2.5-4.0) gm/dl Albumin/Globulin Ratio 1.6 (0.9-2) Lipase 48 (11-82) U/L TSH 2.766 (0.300-4.500) uIu/ml Administered Medications Sodium Chloride (Nss) 1,000 mls @ 75 mls/hr IV .[id number] KENIA Stop: 06/22/23 01:14 Last Admin: 05/23/23 02:17 Dose: 75 mls/hr Documented By: CP Discontinued Medications Aspirin (Aspirin 81 Mg Chew) 324 mg PO NOW STA Stop: 05/22/23 23:42 Last Admin: 05/22/23 23:47 Dose: 324 mg Documented By: CELIO Atropine Sulfate (Atropine Sulfate 0.1 Mg/Ml 10ml Syr) Confirm Administered Dose 1 mg IV .STK-MED ONE Stop: 05/23/23 00:31 Last Admin: 05/23/23 00:53 Dose: 0.5 mg Documented By: KERRI Fentanyl Citrate (Fentanyl Citrate Pf 100 Mcg/2 Ml Vial) Confirm Administered Dose 100 mcg .ROUTE .STK-MED ONE Stop: 05/22/23 23:57 Last Increment: 05/23/23 00:51 Dose: 50 mcg Documented By: KERRI Heparin Sodium (Porcine) (Heparin Sod (Porcine) 1000 Unit/Ml) 5,000 units IV NOW ONE Stop: 05/22/23 23:42 Last Admin: 02/25/24 23:47 Dose: 5,000 units Documented By: CELIO Co-signed By: DONATO Heparin Sodium (Porcine) (Heparin (Porcine) 1000 Unit/Ml 10 Ml ([facility] Use Only)) Confirm Administered Dose 10,000 units .ROUTE .STK-MED ONE Stop: 05/22/23 23:57 Last Admin: 05/23/23 00:51 Dose: 5,000 units Documented By: KERRI Heparin Sodium/Sodium Chloride (Heparin In Nss Infusion 1000 Unit/500 Ml (2 U/Ml) Bag) Confirm Administered Dose 3,000 units IV .STK-MED ONE Stop: 05/22/23 23:57 Last Admin: 05/23/23 00:51 Dose: 3,000 units Documented By: KERRI Sodium Chloride (Nss) 1,000 mls @ 125 mls/hr IV .Q8H [facility] Stop: 06/21/23 23:44 Last Infusion: 05/23/23 02:12 Dose: Infused Documented By: Admin: 05/22/23 23:41 Dose: 125 mls/hr Documented By: CELIO Sodium Chloride (Nss) 1,000 mls @ 75 mls/hr IV .[id number] ONE Stop: 05/23/23 13:44 Last Admin: 05/23/23 02:12 Dose: Not Given Documented By: LORI Potassium Chloride (K Brandon / Wtr) 10 meq in 100 mls @ 100 mls/hr IV Q1H [facility] Stop: 05/23/23 03:59 Last Infusion: 05/23/23 04:17 Dose: Infused Documented By: Admin: 05/23/23 03:12 Dose: 100 mls/hr Documented By: Infusion: 05/23/23 03:12 Dose: Infused Documented By: Admin: 05/23/23 02:21 Dose: 100 mls/hr Documented By: LORI Iodixanol (Iodixanol (Visipaque) 320 Mg/Ml 100ml) Confirm Administered Dose 1 ml IV .STK-MED ONE Stop: 05/22/23 23:58 Last Admin: 05/23/23 01:54 Dose: Not Given Documented By: LORI Ioversol (Optiray 350) Confirm Administered Dose 1 ml .ROUTE .STK-MED ONE Stop: 05/22/23 23:57 Last Admin: 05/23/23 00:51 Dose: 200 ml Documented By: KERRI Lidocaine HCl (Lidocaine 1% Local 20 Ml Vial) Confirm Administered Dose 1 ml .ROUTE .STK-MED ONE Stop: 05/23/23 00:03 Last Admin: 05/23/23 01:54 Dose: Not Given Documented By: LORI Midazolam HCl (Midazolam Hcl 1 Mg/Ml 2ml Vial) Confirm Administered Dose 2 mg .ROUTE .STK-MED ONE Stop: 05/22/23 23:57 Last Admin: 05/23/23 00:52 Dose: 2 mg Documented By: KERRI Morphine Sulfate (Morphine Sulfate 4 Mg/Ml 1 Ml Carp\\Vial) 4 mg IV NOW STA Stop: 05/22/23 23:37 Last Admin: 05/22/23 23:41 Dose: 4 mg Documented By: CELIO Morphine Sulfate (Morphine Sulfate 4 Mg/Ml 1 Ml Carp\\Vial) 4 mg IV NOW STA Stop: 05/22/23 23:54 Last Admin: 05/22/23 23:55 Dose: 4 mg Documented By: CELIO Nicardipine HCl (Nicardipine Hcl Inj 2.5 Mg/Ml 10 Ml Amp) Confirm Administered Dose 25 mg .ROUTE .STK-MED ONE Stop: 05/22/23 23:57 Last Admin: 05/23/23 00:52 Dose: 25 mg Documented By: KERRI Nitroglycerin/Dextrose (Nitroglycerin/D5w 100mcg/Ml 20ml Syr) Confirm Administered Dose 2,000 mcg .ROUTE .STK-MED ONE Stop: 05/22/23 23:57 Last Admin: 05/23/23 00:53 Dose: 2,000 mcg Documented By: KERRI Ondansetron HCl (Ondansetron Inj 2 Mg/Ml 2 Ml Vial) 4 mg IV NOW STA Stop: 05/22/23 23:37 Last Admin: 05/22/23 23:41 Dose: 4 mg Documented By: CELIO Ticagrelor (Ticagrelor 90 Mg Tab) Confirm Administered Dose 180 mg .ROUTE .STK- MED ONE Stop: 05/23/23 00:51 Last Admin: 05/23/23 00:54 Dose: 180 mg Documented By: KERIR Discharge Plan Visit Data Chief Complaint: Chest Pain Stated Complaint: CHEST PAIN,COLD SWEAT ED Provider: Maranda Patton Discharge Problem: Chest pain, ST elevation (STEMI) myocardial infarction Discharge Instructions Interventions: ED Discharge Assessment Last Done: 05/23/23 00:03
[2023-05-23] LABS: Hematocrit (blood only) 48.7 % (42.0-52.0); Hemoglobin 16.3 g/dl (14.0-18.0); Mean Corpuscular Hemoglobin 31.3 pg (25.0-34.0); Mean Corpuscular Hgb Conc 33.5 g/dL (32.0-36.0); Mean Corpuscular Volume 93.7 fL (80.0-100.0); Mean Platelet Volume 11.8 fL (9.4-12.4); Platelet Count 239 K/uL (130-400); RDW Standard Deviation 41.7 fL (36.4-46.3); White Blood Count 17.89 K/ul (4.8-10.8)
[2023-05-23 00:11] LABS: Albumin Globulin Ratio 1.6 (0.9-2); Albumin Level 4.5 gm/dl (3.4-5.0); BUN Creatinine Ratio 21.8 (10-20); Bilirubin,Total 0.3 mg/dl (0.2-1.0); Calcium 9.3 mg/dl (8.6-10.3); Creatinine Clr Calc Pharmacy 85.5 ml/min; Est GFR (African American) 109.5 ml/min; Est GFR (Non-African American) 94.5 ml/min; Globulin 2.8 gm/dl (2.5-4.0); Magnesium 2.1 mg/dl (1.7-2.4); Potassium 3.8 mmol/L (3.5-5.1); Total Protein 7.3 gm/dl (6.0-8.3)
[2023-05-23 00:17] LABS: Troponin I High Sensitivity 34.1 pg/ml (0-20)
--- NOTE | 2023-05-23 00:20 | History & Physical Report ---
Date of Service May 23, 2023 Assessment & Plan (1) ST elevation (STEMI) myocardial infarction: Plan: Hypertension, possible chronic BP elevation given cardiomegaly on imaging prostate cancer status post surgery Hyperglycemia rule out DM ongoing tobacco abuse ICU admission Analgesia Aspirin and beta-elly for ACS Cardiology consult Re: ST elevation DC (ER provider already in touch with Dr. Davis with heart alert. Patient to proceed with urgent diagnostic cardiac catheterization.) Check hemoglobin A1c Smoking cessation counseling DVT prophylaxis with IV heparin Full code Text document was generated using Lat49 voice recognition software. It may contain grammatical or spelling errors. Kindly contact undersigned for clarification of any documentation item in question. History of Present Illness Chief Complaint: Chest pain Primary Care Provider: Dionicio Haddad MD History obtained from patient and records. Medical history significant for prostate cancer status post surgery, ongoing tobacco abuse. Patient noted progressive chest heaviness today with radiation to both arms. No shortness of breath. Not related to exertion. No cough symptoms. Patient later on noted sweatiness. May have had a transient episode 2 weeks ago. No consultations done. Patient brought to the ER for evaluation by family. ST elevation inferior leads noted on EKG. Heart alert subsequently activated. Medical History as above Surgical History : Pelvic lymphadenectomy, radical prostatectomy, finger amputation Family History : Heart disease, DM Personal/Social history : 1 pack daily, occasional EtOH intake Allergies Allergy/AdvReac Type Severity Reaction Status Date / Time amoxicillin Allergy Severe rash Verified 05/22/23 23:40 extensive Home Medications Medication Instructions Recorded Confirmed Type No Known Home Medications 05/22/23 05/22/23 History Past Med/Surg History Medical History (Updated 05/23/23 @ 01:45 by Ted Davis MD, PhD) Cancer of prostate Cervical myofascial pain syndrome Degenerative cervical spinal stenosis Surgical History H/O prostatectomy Family History Mother , age 76 renal failure No problems noted. Father , unknown No problems noted. Sister No problems noted. Social History Smoking Status: Current every day smoker Tobacco Type: Cigarettes Age Started Using Tobacco: 19; packs per day: 1; Cigarettes Per Day: 20; Second Hand Exposure: No; Do You Dip or Chew Tobacco: No; Hx Alcohol Use: Yes Alcohol type: beer Alcohol Intake Frequency Comment: social Hx Substance Use: No Preferred Language: Bengali Communication Ability: Effective Visual Impairment: No Limitations Hearing Ability: Normal Build And Release Manager Required: No Beliefs That Will Affect Care: None marital status: Single Current Living Situation: Significant Other Current Living Situation Comment: Patient lives with significant other current occupational status: employed 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 Feels Safe at Home: Yes Childhood Exposure to Second-Hand Smoke: No caffeine: Yes (several cups per day) during the past year weight has: remained stable Dental Care, Regularly: No Physical Activity Frequency: Does not Exercise Seatbelt Use: sometimes Sunscreen Use: No Assistive Devices: Glasses Review of Systems Review of Systems: As per HPI, all other systems reviewed and negative Physical Exam Physical Exam: GENERAL: Slightly uncomfortable, pleasant, no respiratory distress SKIN: Normal color, warm HEENT: [place] palpebral conjunctivae, no ptosis, moist buccal mucosa NECK : Supple, no tenderness CHEST : CTA, no tenderness HEART : RRR, no obvious murmurs ABDOMEN: Some distention, nontender EXTREMITIES : No LE swelling/tenderness, amputation stump, left index finger NEUROLOGIC : Coherent, no facial asymmetry, no other gross focality Results & Data Results & Data Vital Signs (Past 12 Hours) Vital Signs Temp Pulse Pulse Resp BP BP Pulse Ox 05/22/23 23:51 95 05/22/23 23:50 65 16 162/108 H 95 05/22/23 23:34 58 L 05/22/23 23:25 36.4 C L 60 18 150/92 H 99 O2 Del Method 05/22/23 23:51 Room Air 05/22/23 23:50 Room Air 05/22/23 23:34 05/22/23 23:25 Room Air Laboratory Results Laboratory Results WBC 17.89 K/ul (4.8-10.8) H 05/22/23 23:38 RBC 5.20 M/uL (4.70-6.10) 05/22/23 23:38 Hgb 16.3 g/dl (14.0-18.0) 05/22/23 23:38 Hct 48.7 % (42.0-52.0) 05/22/23 23:38 MCV 93.7 fL (80.0-100.0) 05/22/23 23:38 MCH 31.3 pg (25.0-34.0) 05/22/23 23:38 MCHC 33.5 g/dL (32.0-36.0) 05/22/23 23:38 RDW Std Deviation 41.7 fL (36.4-46.3) 05/22/23 23:38 RDW Coeff of Alessandro 12.0 % (11.5-14.5) 05/22/23 23:38 Plt Count 239 K/uL (130-400) 05/22/23 23:38 MPV 11.8 fL (9.4-12.4) 05/22/23 23:38 Sodium 140 mmol/L (136-145) 05/22/23 23:38 Potassium 3.8 mmol/L (3.5-5.1) 05/22/23 23:38 Chloride 104 mmol/L (98-107) 05/22/23 23:38 Carbon Dioxide 30 mmol/L (21-32) 05/22/23 23:38 Anion Gap 6 (3-11) 05/22/23 23:38 BUN 19 mg/dl (6-23) 05/22/23 23:38 Creatinine 0.87 mg/dl (0.6-1.4) 05/22/23 23:38 Est Cr Clr Drug Dosing 85.5 ml/min 05/22/23 23:38 Est GFR ( Amer) 109.5 ml/min 05/22/23 23:38 Est GFR (Non-Af Amer) 94.5 ml/min 05/22/23 23:38 BUN/Creatinine Ratio 21.8 (10-20) H 05/22/23 23:38 Glucose 148 mg/dl (70-99(Fasting)) H 05/22/23 23:38 Calcium 9.3 mg/dl (8.6-10.3) 05/22/23 23:38 Magnesium 2.1 mg/dl (1.7-2.4) 05/22/23 23:38 Total Bilirubin 0.3 mg/dl (0.2-1.0) 05/22/23 23:38 AST 17 U/L (13-39) 05/22/23 23:38 ALT 16 U/L (7-52) 05/22/23 23:38 Alkaline Phosphatase 84 U/L (34-104) 05/22/23 23:38 Total Creatine Kinase 105 U/L (30-223) 05/22/23 23:38 Troponin I High Sens 34.1 pg/ml (0-20) H 05/22/23 23:38 B-Natriuretic Peptide 12 pg/ml (0-100) 05/22/23 23:38 Total Protein 7.3 gm/dl (6.0-8.3) 05/22/23 23:38 Albumin 4.5 gm/dl (3.4-5.0) 05/22/23 23:38 Globulin 2.8 gm/dl (2.5-4.0) 05/22/23 23:38 Albumin/Globulin Ratio 1.6 (0.9-2) 05/22/23 23:38 Lipase 48 U/L (11-82) 05/22/23 23:38 Diagnostic Findings Chest x-ray as per my interpretation cardiomegaly EKG as per my interpretation : Rate 50, sinus bradycardia, normal axis, ST elevation inferior and lateral leads, ST depression septal leads
[2023-05-23 00:26] LABS: Thyroid Stimulating Hormone 2.766 uIu/ml (0.300-4.500)
[2023-05-23 00:34] LABS: INR 0.9 (0.9-1.1); Partial Thromboplastin Ratio 0.9; Partial Thromboplastin Time 25 Seconds (21-31); Prothrombin Time 10.3 Seconds (9.0-12.0)
[2023-05-23] MEDS: fentaNYL citrate PF 100 MCG/2 ML VIAL ONE (00:51)
[2023-05-23] MEDS: OPTIRAY 350 ONE (00:51)
[2023-05-23] MEDS: HEPARIN (PORCINE) 1000 UNIT/ML 10 ML (CATH LAB USE ONLY) ONE (00:51)
[2023-05-23] MEDS: niCARdipine HCL INJ 2.5 MG/ML 10 ML AMP ONE (00:52)
[2023-05-23] MEDS: MIDAZOLAM HCL 1 MG/ML 2ML VIAL ONE (00:52)
[2023-05-23] MEDS: NITROGLYCERIN/D5W 100MCG/ML 20ML SYR ONE (00:53)
[2023-05-23] MEDS: ATROPINE SULFATE 0.1 MG/ML 10ML SYR IV ONE (00:53)
[2023-05-23] MEDS: TICAGRELOR 90 MG TAB ONE (00:54)
[2023-05-23 01:01] LABS: ALC (manual) 9.84 K/uL (1.2-3.4); ANC (manual) 6.44 K/uL (1.4-6.5); Basophils # (manual) 0.18 K/uL (0-0.2); Basophils % (manual) 1 %; Eosinophils # (manual) 0.89 K/uL (0-0.50); Eosinophils % (manual) 5 %; Large Granular Lymph # (manua 4.11 K/uL; Large Granular Lymph % (manual) 23 %; Lymphocytes # (manual) 5.72 K/uL (1.2-3.4); Lymphocytes % (manual) 32 %; Monocytes # (manual) 0.54 K/uL (0.11-0.59); Monocytes % (manual) 3 %; Neutrophils # (manual) 6.44 K/uL (1.40-6.50); Neutrophils % (manual) 36 %; RBC Morphology Unremarkable
[2023-05-23] MEDS ORDERED: ACETAMINOPHEN 325 MG TAB PO PRN (01:01)
--- NOTE | 2023-05-23 01:12 | Pre Anesthesia Assessment ---
Date of Service May 23, 2023 Pre Sedation Assessment Vital Signs Temp Pulse Pulse Resp BP BP Pulse Ox 05/22/23 23:51 95 05/22/23 23:50 65 16 162/108 H 95 05/22/23 23:34 58 L 05/22/23 23:25 36.4 C L 60 18 150/92 H 99 O2 Del Method 05/22/23 23:51 Room Air 05/22/23 23:50 Room Air 05/22/23 23:34 05/22/23 23:25 Room Air Cardiovascular RRR, no murmur, no edema Respiratory normal respiratory effort, lungs clear to auscultation Pre-Sedation Airway Assessment Smoking Status: Never smoker Mallampati 2 ASA 4 Notes The planned sedation has been discussed with the patient. Informed Consent was obtained. I have identified the patient, determined the appropriateness of sedation and have assessed the patient immediately prior to the procedure. All medicine(s) and interventions are by my order.
--- NOTE | 2023-05-23 01:14 | Post Anesthesia Assessment ---
Date of Service May 23, 2023 Post Sedation Assessment Vital Signs Temp Pulse Pulse Resp BP BP Pulse Ox 05/22/23 23:51 95 05/22/23 23:50 65 16 162/108 H 95 05/22/23 23:34 58 L 05/22/23 23:25 36.4 C L 60 18 150/92 H 99 O2 Del Method 05/22/23 23:51 Room Air 05/22/23 23:50 Room Air 05/22/23 23:34 05/22/23 23:25 Room Air Recovery Score Activity: Moves 4 extremities Respiration: Deep Breath/Cough Circulation: +/-20% PreAnes Value Consciousness: Fully Awake Oxygen Saturation: > 92% On Room Air Discharge Sedation Level of Care: Fast Track Phase II Post Sedation Plan On clinical assessment, the patient appears to have tolerated the sedation without complications. Patient is recovering as anticipated. Patient will continue to be monitored by nursing and may be discharged when sedation discharge criteria are met per below protocol. Upon Completions of procedure up to 15 minutes continue every 5 minute vital signs and the P.A.R. score; then discharge to a Phase I or Fast Track to Phase II per the following guidelines: * Discharge Patient to appropriate Phase II area if PAR is 8 or greater or return to pre- procedure baseline. The post - procedure orders will be as directed. * If PAR score is less than 8 or not return to pre-procedure baseline then patient will follow Phase I monitoring till PAR is reached for Phase II. The Phase I may be done in procedure room or may call to secure a Phase I area. * If naloxone or flumazenil are used for reversal, hold in Phase I for continued monitoring from when last reversal dose was given for a minimum of 60 minutes or longer pending the nurse and/or physician discretion of patient condition before discharge to Phase II. Please call the Sedation Physician to re-evaluate and complete post-note for discharge to Phase II area. Do NOT discharge from procedure sedation or Phase 1 until post- sedation evaluation note is complete by procedure /sedation MD Sedation Discharge Instructions to be given to the patient at discharge to home. [facility] [place] Procedure Codes (Charges) Indication for Procedure Indication for procedure: STEMI Sedation/Anesthesia Procedure 1: Sedation/Anesthesia: 68112 Mod Sedation by the same physician;Init15 Min Child Age 5 & Up (Initial 15 min start 0014) Total Sedation Time (minutes): 41 Procedure 2: Sedation/Anesthesia: 10144 Mod Sedation by the same physician; Ea [id number] Minutes (Additional 26 min) Total Sedation Time (minutes): 41
--- NOTE | 2023-05-23 01:19 | Cardiac Catheterization ---
ACC Data: Tester Equipment Cardiac Status Clinical evaluation leading to the procedure CAD Presenation: STEMI Anginal Classification: CCS IV Heart Failure: No Cardiogenic Shock within 24 Hours: No Cardiac Arrest within 24 Hours: No Imaging Studies Past 6 Months: No Stress Studies Past 6 Months: No STEMI OR Non-STEMI Symptom Onset Date: 05/22/23 Symptom Onset Time: 10:00 Thrombolytics: No Coronary Anatomy Left Main (% Stenosis): Normal LAD (% Stenosis): Proximal (50 to 70%), Mid (50 to 70%) and Distal (80%) D1 (% Stenosis): Ostial (50%) Circumflex (% Stenosis): Mid (50%) and Distal (100%) OM1 (% Stenosis): Normal OM2 (% Stenosis): Normal L PL1 (% Stenosis): Normal RCA (% Stenosis): Proximal (40%) and Distal (60 to 70%) R PDA (% Stenosis): Normal (Scattered up to 50%) Diagnostic Physicians Name: Ted Davis MD, PhD Closure Device Percutaneous Entry Location: Radial Closure Device: Radial Band Recommendations: Medical Therapy and/or Counseling and PCI without planned CABG PCI Indication: PCI for STEMI - Stable First Noted: First EKG Lesion Segment Name: Distal circumflex Culprit Artery: Yes Stenosis Prior to Rx (%): 100% Chronic Total Occlusion: No Pre-Procedure DENG Flow: 0 Previously Treated Lesion: No Lesion Complexity: Non-High/Non-C Lesion Length (mm): 15 Thrombus Present: Yes Bifurcation Lesion: No Guidewire Across Lesion: Yes Intraprocedure Events Significant Disection: No Perforation: No Cardiac Cath Procedure Full Procedure Date May 23, 2023 Pre-Procedure Diagnosis Pre-Procedure Diagnosis: STEMI AUC Score AUC Score: 09 Post-Procedure Diagnosis Post-Procedure Diagnosis: Severe CAD Procedure(s) Performed Procedure(s) Performed: Coronary Angiography, Drug Eluting Stent and Ultrasound Guided Vascular Access Director Game Ted Davis MD, PhD Estimated Blood Loss Estimated Blood Loss: 10 cc Medication(s) Medication(s): Atropine, Fentanyl, Heparin, Lidocaine 1%, Nicardipine, Nitroglycerin and Versed Summary of Findings Brief description: Patient was brought to the cardiac catheterization suite where he was shaved and prepped in a sterile fashion. Sedated using IV Versed and fentanyl. Soft tissues of the right wrist were anesthetized using 2 mL of 1% Xylocaine. Using ultrasound for guidance (image saved), the right radial artery was accessed and a 6 Togolese radial artery sheath was placed. Patient was provided antispasmodics including nicardipine and nitroglycerin and anticoagulation with heparin. All catheters were advanced and exchanged over a 0.035 J-tip wire. Left coronary angiography in orthogonal views with a 5 Togolese JL 3.5 diagnostic catheter. Right coronary angiography in orthogonal views with a 6 Togolese JR4 guide catheter. The catheters were removed. We next proceeded with PCI. A 6 Togolese EBU 3.0 guide catheter was used to engage the left main coronary. A BMW reversal guidewire was advanced through the guide catheter and positioned distally in the circumflex. ACT was checked and additional heparin was provided intermittently throughout the case to maintain therapeutic anticoagulation. Predilatation with a 2.0 x 12 mm trek balloon up to 8 katy then 14 katy. 2.25 x 18 mm Camilo drug-eluting stent was deployed across the lesion at 14 katy. Distillation Operator Helper angiography performed. 2.5 x 12 mm Camilo drug-eluting stent was placed with its distal edge just within the proximal edge of the initial stent and then deployed at 14 katy. The stent balloon was then advanced across the overlapped segment and into the proximal segment of the initial stent where was then inflated to 12 katy. Distillation Operator Helper angiography performed. Guidewire was removed and final angiographic evaluation was performed. Guide catheter was removed over the J-wire. Radial artery sheath was removed. Hemostasis was obtained using the TR band. Patient remained hemodynamically stable and asymptomatic. He admitted to the ICU for further workup and management. This ended the case. Coronary angiography findings: EMF-mfzru-sycnaod vessel bifurcating into LAD and circumflex. No disease. JGP-llhrn-swoxqaw and transapical. Proximal segment diffusely diseased with up to 50 to 70% narrowing occurring just before the ostium of the first diagonal. LAD gives a large branching first diagonal with ostial 50% stenosis and a large septal trunk. The mid segment has continuation of disease which is calcified and appears 50 to 70% narrowed. Distal vessel has luminal irregularities until the apex where there is a focal 80 to 90% stenosis. Too small for intervention. ENc-cuoct-lvrfcle and probably codominant. Travels in the AV groove and almost immediately gives a small OM1. Then there is a focal 40 to 50% stenosis in the AV groove vessel at the level of a small OM 2. Third major branch appears to be a medium caliber branching posterolateral. The distal AV groove vessel is 100% occluded after the posterolateral branch. There is DENG 0 flow and staining suggestive of culprit lesion. RCA-this is small to medium in caliber and codominant. Proximally focal 40% stenosis. Distally there is a focal 60 to 70% stenosis and then the vessel continues on as a small caliber PDA which has scattered less than 50% stenosis. PCI of distal circumflex- 0% residual stenosis post PCI DENG-3 flow post PCI No evidence of dissection or perforation post PCI Summary: 1. Severe multivessel coronary artery disease. Culprit for AMI is circumflex. 2. Successful PCI with implantation of 2 overlapped drug-eluting stents in the left circumflex. 3. Dual antiplatelet therapy with aspirin 81 mg daily and Brilinta 90 mg p.o. twice daily. 4. Initiate guideline directed medical therapy for secondary prevention of coronary disease to include; low-dose aspirin, high intensity statin therapy, beta-elly, plus or minus TERESA inhibitor/ARB as tolerated. Hemodynamics Rest Ao:: 149/83 mmHg Final Ao: 133/75 mmHg LV: Not performed Recommendations Recommendations: Medical Therapy and/or Counseling and PCI without planned CABG Radiation Exposure (mGy) 1529 mGy, fluoroscopy time 8.2 minutes Contrast (mls) 200 mL Anesthesia 2 mg Versed, 50 mcg fentanyl IV. Start time 0014, end time 0055 Procedural Complication(s) None Disposition ICU I attest to the content of the Intraoperative Record and any orders documented therein. Any exceptions are noted below. [facility] Card Cath Procedure Codes Cardiac Catheterization Procedure 1: Cardiovascular Cath Procedures: 10858 Coronaries Therapeutic Services & Ancillary Procedure 2: Cardiovascular Tx and Anc Procedures: 18739 Ultrasonic Guidance Vascular Access Moderate Sedation Procedure 1: Sedation/Anesthesia: 03057 Mod Sedation by the same physician;Init15 Min Child Age 5 & Up (Initial 15 minutes, start 0014) Procedure 2: Sedation/Anesthesia: 65145 Mod Sedation by the same physician; Ea [id number] Minutes (Additional 26 min, and 0055) Stenting Procedure 1: Cardiovascular Stent Procedures: 23585 Perc transluminal revascularization of acute sub/total occl, aMI (LCx) PG Care Time/CCT Total # of Minutes Spent Total Time Spent with Patient: Total time spent is greater than 50% in coordination of care (as documented) at patient's floor/unit and/or counseling patient:
--- NOTE | 2023-05-23 01:49 | Cardiology Consultation ---
Date of Consultation May 23, 2023 Assessment & Plan (1) ST elevation (STEMI) myocardial infarction: Status post PCI of the distal circumflex with 2 overlapped drug-eluting stents. Resolution of symptoms and improvement in EKG. Patient will be admitted to the ICU for 24 hours monitoring and treatment. Dual antiplatelet therapy has been initiated with aspirin 81 mg daily and Brilinta 90 mg p.o. twice daily. Also initiating guideline directed medical therapy for secondary prevention including high intensity statin therapy and beta-elly. We will obtain an echocardiogram to evaluate LV function. ICU service is consulted per protocol. Patient is admitted under the hospitalist service. 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 High intensity statin therapy is initiated with a atorvastatin 40 mg daily. Checking a fasting lipid panel to determine his baseline untreated LDL and target LDL reduction. (3) Benign essential hypertension: Blood pressure was very elevated in the emergency department as well as in the Respiratory Care Program Director. Patient stated home blood pressures typically in the 140s systolic. He should therefore be able to tolerate the beta-elly and we will also consider an TERESA inhibitor or angiotensin receptor elly if needed to achieve target blood pressure reduction. History of Present Illness Reason for Consultation: ST elevation FL Attending Physician: Ted Davis MD, PhD History of Present Illness 58-year-old male smoker with out prior cardiac history and who denies hypertension, diabetes, and dyslipidemia presented to the emergency department with complaint of chest pain. Initial EKG demonstrated inferior ST elevation suggestive of acute inferior FL. "Heart alert" was called and on my arrival patient continued with severe chest discomfort. He tells me that he began having chest discomfort pretty much on and off all day. However it worsened such that eventually he decided to seek medical attention. There was associated diaphoresis and mild shortness of breath. He admits that he had been having some brief episodes lasting a few minutes recently while he was [place] [employer] [place] and even had some the week previous to that at work lasting just a few minutes and not being very severe but feeling "tight in the chest". He denies any recent syncope, near syncope, orthopnea, PND, racing heartbeat, palpitations, or edema. He voices no other complaints or concerns at this time. Allergies Allergy/AdvReac Type Severity Reaction Status Date / Time amoxicillin Allergy Severe rash Verified 05/22/23 23:40 extensive Home Medications Medication Instructions Recorded Confirmed Type No Known Home Medications 05/22/23 05/22/23 History Patient History Medical History (Updated 05/23/23 @ 01:45 by Ted Davis MD, PhD) Cancer of prostate Cervical myofascial pain syndrome Degenerative cervical spinal stenosis Surgical History H/O prostatectomy Family History Mother , age 76 renal failure No problems noted. Father , unknown No problems noted. Sister No problems noted. 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 Sclera are anicteric. ENMT: Oral mucosa is pink moist and intact Neck: No JVD, thyromegaly, or bruits. Respiratory: normal respiratory effort, lungs clear to auscultation Cardiovascular: RRR, no murmur, no edema Musculoskeletal: no cyanosis or clubbing, extremities motor strength 5/5 Neurologic: Cognition is intact. Speech is fluent. No focal deficits. Psychiatric: A+Ox3, euthymic affect Results & Data Vital Signs (Past 12 Hours) Vital Signs Temp Pulse Pulse Resp BP BP Pulse Ox 05/22/23 23:51 95 05/22/23 23:50 65 16 162/108 H 95 02/25/24 23:34 58 L 05/22/23 23:25 36.4 C L 60 18 150/92 H 99 O2 Del Method 05/22/23 23:51 Room Air 05/22/23 23:50 Room Air 05/22/23 23:34 05/22/23 23:25 Room Air PG Care Time/CCT Total # of Minutes Spent Total Time Spent with Patient: Total time spent is greater than 50% in coordination of care (as documented) at patient's floor/unit and/or counseling patient: Critical Care Time: Yes Total Critical Care Time: 50 A total of 50 minutes critical care time was spent in the initial evaluation and examination of the patient. A review of the medical records, discussion with patient, discussion with family, discussion with care team, formulation and implementation of a plan of care, and all associated documentation. This time is exclusive of the time spent on the procedure. Coding Level of Care Code 59404 CRITICAL CARE 1ST 30-74M Diagn[address] elevation (STEMI) myocardial infarction I21.3 Atherogenic dyslipidemia E78.5 Benign essential hypertension I10 Additional Codes Critical Care Time - Critical Care Time: Yes ([id number]) Time Spent (min) 50
[2023-05-23] MEDS: LIDOCAINE 1% LOCAL 20 ML VIAL ONE (01:54)
[2023-05-23] MEDS: IODIXANOL (VISIPAQUE) 320 MG/ML 100ML IV ONE (01:54)
[2023-05-23] MEDS ORDERED: PROMETHAZINE HCL 12.5 MG in SODIUM CHLORIDE 0.9% 50 ML IV PRN (02:02)
[2023-05-23] MEDS ORDERED: MoRPHine SULFATE 4 MG/ML 1 ML CARP\\VIAL IV PRN (02:02)
--- NOTE | 2023-05-23 02:10 | Critical Care Consultation ---
Date of Consultation May 23, 2023 Assessment & Plan (1) ST elevation (STEMI) myocardial infarction: Patient with ST elevation on EKG and elevated troponin. S/p cardiac cath with PCI of the distal circumflex with 2 overlapped drug-eluting stents. Admitted to ICU post cath. -Continue ASA, statin, Brilinta, MTP -Trend troponin for peak -Follow-up TTE -Follow-up lipid panel and hemoglobin A1c -Heart healthy diet -Continuous monitoring on telemetry -Cardiology consulted, follow-up recommendations History of Present Illness Attending Physician: Easton Villareal MD History of Present Illness Patient is a 58-year-old male with past medical history of prostate cancer (status post prostatectomy), smoker (1 pack/days) who presented to the emergency department earlier tonight with complaints of chest pain. Patient states that he had intermittent chest pain throughout the day, and developed crushing chest pain around 10 PM with associated diaphoresis and radiation to both arms. Patient presented to the emergency department where he was found to have ST elevation on EKG. Heart alert initiated he was taken to the [facility] where he received 2 overlapped drug-eluting stents to the circumflex. On arrival to the ICU the patient is alert and oriented and hemodynamically stable. He currently reports dull chest discomfort which is constant but much improved from earlier. He currently denies shortness of breath, further diaphoresis, or radiation to arms. He denies recent illness or fevers, cough or congestion, dizziness, syncope, changes in vision, numbness or tingling, shortness of breath, abdominal pain, nausea vomiting or diarrhea, swelling in hands or feet, changes in gait, changes in urine stream or frequency. Patient to remain in ICU for further management monitoring at this time. Allergies Allergy/AdvReac Type Severity Reaction Status Date / Time amoxicillin Allergy Severe rash Verified 05/22/23 23:40 extensive Home Medications Medication Instructions Recorded Confirmed Type No Known Home Medications 05/22/23 05/22/23 History Patient History Medical History (Updated 05/23/23 @ 01:45 by Ted Davis MD, PhD) Cancer of prostate Cervical myofascial pain syndrome Degenerative cervical spinal stenosis Surgical History H/O prostatectomy Family History Mother , age 76 renal failure No problems noted. Father , unknown No problems noted. Sister No problems noted. Social History Smoking Status: Current every day smoker Tobacco Type: Cigarettes Age Started Using Tobacco: 19; packs per day: 1; Cigarettes Per Day: 20; Second Hand Exposure: No; Do You Dip or Chew Tobacco: No; Hx Alcohol Use: Yes Alcohol type: beer Alcohol Intake Frequency Comment: social Hx Substance Use: No Preferred Language: Azerbaijani Communication Ability: Effective Visual Impairment: No Limitations Hearing Ability: Normal Postal Delivery Officer Required: No Beliefs That Will Affect Care: None marital status: Single Current Living Situation: Significant Other Current Living Situation Comment: Patient lives with significant other current occupational status: employed 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 Feels Safe at Home: Yes Childhood Exposure to Second-Hand Smoke: No caffeine: Yes (several cups per day) during the past year weight has: remained stable Dental Care, Regularly: No Physical Activity Frequency: Does not Exercise Seatbelt Use: sometimes Sunscreen Use: No Assistive Devices: Glasses Review of Systems Review of Systems: All systems reviewed & are unremarkable except as noted in HPI & below Physical Exam Constitutional: cooperative and comfortable; no acute distress Eyes: PERRL, conjunctivae normal, anicteric sclerae ENMT: external ear and nose normal, oropharynx normal Neck: trachea midline, no thyromegaly Respiratory: normal respiratory effort, lungs clear to auscultation Cardiovascular: RRR, no murmur, no edema Heart Sounds: normal S1 and normal S2; no murmur Extremities: no edema Gastrointestinal (Abdomen): normal bowel sounds, soft, nontender, no hepatosplenomegaly Musculoskeletal: no cyanosis or clubbing, extremities motor strength 5/5 Skin: no rashes, warm and dry Neurologic: PERRL, EOMI, accommodation nl, no face palsy, no dysarthria Psychiatric: A+Ox3, euthymic affect Results & Data Results & Data Vital Signs (Past 12 Hours) Vital Signs Temp Pulse Pulse Resp BP BP Pulse Ox 05/23/23 01:32 36.5 C 78 22 152/101 H 95 05/22/23 23:51 95 05/22/23 23:50 65 16 162/108 H 95 05/22/23 23:34 58 L 05/22/23 23:25 36.4 C L 60 18 150/92 H 99 O2 Del Method 05/23/23 01:32 Room Air 05/22/23 23:51 Room Air 05/22/23 23:50 Room Air 05/22/23 23:34 05/22/23 23:25 Room Air Coding Level of Care Code 80219 IN/OBS CONSULT LVL 2,35M Diagnoses ST elevation (STEMI) myocardial infarction I21.3 Time Spent (min) 38
[2023-05-23] MEDS: SODIUM CHLORIDE 0.9% 1,000 ML IV ONE (02:12)
[2023-05-23] MEDS: SODIUM CHLORIDE 0.9% 1,000 ML IV SCH (02:17)
[2023-05-23] MEDS: POTASSIUM CHLORIDE / WTR 10 MEQ/100 ML PLCT IV SCH (02:21)
[2023-05-23 02:27] LABS: Basophils # (auto) 0.09 K/uL (0.00-0.20); Basophils % (auto) 0.4 %; Eosinophils # (auto) 0.14 K/uL (0.00-0.50); Eosinophils % (auto) 0.7 %; Hematocrit (blood only) 47.5 % (42.0-52.0); Lymphocytes # (auto) 1.72 K/uL (1.20-3.40); Lymphocytes % (auto) 8.2 %; Mean Corpuscular Hemoglobin 31.3 pg (25.0-34.0); Mean Corpuscular Hgb Conc 33.7 g/dL (32.0-36.0); Mean Corpuscular Volume 92.8 fL (80.0-100.0); Mean Platelet Volume 11.5 fL (9.4-12.4); Monocytes % (auto) 3.8 %; Neutrophils # (auto) 18.05 K/uL (1.40-6.50); Neutrophils % (auto) 85.9 %; Platelet Count 200 K/uL (130-400); RDW Standard Deviation 41.4 fL (36.4-46.3); Red Blood Count 5.12 M/uL (4.70-6.10)
[2023-05-23 02:58] LABS: Troponin I High Sensitivity 10462.2 pg/ml (0-20)
[2023-05-23] MEDS: ICU Protocol for HYPERglycemia SCH (06:59)
[2023-05-23 07:11] LABS: iSTAT Creatinine 0.9 mg/dl (0.6-1.3); iSTAT Hemoglobin 16.7 g/dl (14.0-18.0); iSTAT Ionized Calcium 1.14 mmol/l (1.12-1.32); iSTAT Potassium 3.6 mmol/L (3.3-5.0)
--- NOTE | 2023-05-23 07:26 | XRay Report ---
XR chest 1V portable CLINICAL HISTORY: Chest pain, nonspecific COMPARISON STUDY: No previous studies for comparison. FINDINGS: No pneumothorax or pleural effusion is present. Mild cardiomegaly. No radiographic evidence for pulmonary edema. A moderate sized hiatal hernia is present. IMPRESSION: 1. No acute cardiopulmonary findings. 2. Mild cardiomegaly. 3. Moderate-sized hiatal hernia. ACT 112: Negative or not required by law. Electronically signed by: Db Valladares M.D. 05/23/2023 7:25 AM
[2023-05-23 07:38] LABS: Estimated Average Glucose 128 mg/dl; Hemoglobin A1C 6.1 % (4.5-5.6)
[2023-05-23] MEDS: ATORVASTATIN 40 MG TAB PO SCH (07:53)
[2023-05-23] MEDS: ENOXAPARIN INJ 40 MG/0.4 ML SYR SQ SCH (07:53)
[2023-05-23] MEDS: METOPROLOL TARTRATE 25 MG TAB PO SCH (07:53)
[2023-05-23] MEDS: ASPIRIN 81 MG ECTAB PO SCH (07:53)
[2023-05-23] MEDS: INFLUENZA VIRUS QUADRIVALENT VACCINE (IIV4) 0.5 ML SYR IM ONE (07:54)
--- NOTE | 2023-05-23 13:38 | Electrocardiogram Report ---
Test Reason : Blood Pressure : / mmHG Vent. Rate : 082 BPM Atrial Rate : 082 BPM P-R Int : 144 ms QRS Dur : 078 ms QT Int : 378 ms P-R-T Axes : 049 003 079 degrees QTc Int : 441 ms Normal sinus rhythm Inferior infarct , age undetermined Abnormal ECG When compared with ECG of 22-MAY-2023 23:30, (unconfirmed) Serial changes of evolving Inferior infarct Confirmed by Sergey Bruce ([id number]) on 05/23/2023 1:37:57 PM Referred By: REFERRED SELF Confirmed By:Sergey Bruce
--- NOTE | 2023-05-23 13:40 | Electrocardiogram Report ---
Test Reason : Blood Pressure : / mmHG Vent. Rate : 051 BPM Atrial Rate : 051 BPM P-R Int : 156 ms QRS Dur : 084 ms QT Int : 416 ms P-R-T Axes : 051 047 090 degrees QTc Int : 383 ms Poor data quality, interpretation may be adversely affected Sinus bradycardia with sinus arrhythmia Possible Left atrial enlargement ST elevation consider inferolateral injury or acute infarct ACUTE MN / STEMI Consider right ventricular involvement in acute inferior infarct Abnormal ECG No previous ECGs available Confirmed by Sergey Bruce ([id number]) on 05/23/2023 1:40:12 PM Referred By: REFERRED SELF Confirmed By:Sergey Bruce
[2023-05-23] MEDS ORDERED: NICOTINE 14 MG/24 HR PATCH TD SCH (14:00)
[2023-05-23] MEDS: NICOTINE 21 MG/24 HR TDSY TD SCH (14:11)
--- NOTE | 2023-05-23 19:03 | Hospitalist Progress Note ---
Date of Service May 23, 2023 delayed entry date of service noted above Assessment & Plan (1) ST elevation (STEMI) myocardial infarction: Plan: Status post PCI, drug-eluting stent placement, distal left circumflex Stable overall Continue aspirin, Brilinta, metoprolol, atorvastatin Patient and family expressed frustration because details of cardiac cath, including findings, have not yet been collaborating with them Discussed results of cardiac cath including multivessel disease, Dr. Davis will be returning to further discuss findings with them Also explained that repeat echo will be performed They verbalized understanding and agreement with the plan of care Hypertension Improving Continue Toprol prostate cancer status post surgery Pre-DM A1c 6.1 Monitor ongoing tobacco abuse DVT prophylaxis SCDs Full code Admission and Anticipated Discharge Date Admission Date: May 23, 2023 Subjective Follow-up ST elevation [place], status post PCI, drug-eluting stent placement, etc. Seen resting in bed, comfortable, sitting up, not in distress Family at the bedside visiting Has intermittent mild chest discomfort, none during exam no chest pain, dyspnea, palpitations, dizziness No other symptoms Review of Systems Review of Systems: all noted and negative except for above Physical Exam Physical Exam: General- oriented x 3, not in distress, speaks in sentences with no effort or accessory muscle use Eyes- anicteric Neck- no JVD Lungs- clear breath sounds bilaterally, no rales/wheezes Heart- normal rate, regular rhythm; no murmurs Abdomen- normal bowel sounds, nondistended, soft, nontender Extremities- no pretibial edema, no calf tenderness Neuro- alert, oriented x 3; no gross focal neurologic deficits Skin- warm & dry Results & Data Results & Data Vital Signs (Past 12 Hours) Vital Signs Temp Pulse Resp BP Pulse Ox O2 Del Method 05/23/23 16:00 72 21 94 05/23/23 16:00 36.9 C 05/23/23 16:00 72 05/23/23 15:00 67 13 94 05/23/23 15:00 123/80 05/23/23 14:00 137/82 05/23/23 14:00 64 19 94 05/23/23 13:00 144/85 H 05/23/23 13:00 60 16 93 05/23/23 12:00 146/91 H 05/23/23 12:00 63 23 93 Room Air 05/23/23 12:00 37.0 C 05/23/23 11:00 141/94 H 05/23/23 11:00 56 L 12 94 Room Air 05/23/23 10:01 154/107 H 05/23/23 10:01 73 18 93 05/23/23 10:00 72 21 95 05/23/23 09:00 55 L 14 94 05/23/23 09:00 132/86 05/23/23 08:00 71 22 95 05/23/23 08:00 137/82 05/23/23 08:00 36.9 C all noted and reviewed including below
[2023-05-23] MEDS: TICAGRELOR 90 MG TAB PO SCH (20:11)
[2023-05-23] MEDS: traMADol HCL 50 MG TABLET PO PRN (20:12)
[2023-05-24 04:33] LABS: Basophils # (auto) 0.07 K/uL (0.00-0.20); Basophils % (auto) 0.5 %; Eosinophils # (auto) 0.49 K/uL (0.00-0.50); Eosinophils % (auto) 3.7 %; Hemoglobin 15.4 g/dl (14.0-18.0); Immature Granulocytes # (auto) 0.09 K/uL (0.01-0.20); Immature Granulocytes % (auto) 0.7 %; Lymphocytes # (auto) 4.93 K/uL (1.20-3.40); Lymphocytes % (auto) 37.5 %; Mean Corpuscular Hemoglobin 31.6 pg (25.0-34.0); Mean Corpuscular Hgb Conc 34.2 g/dL (32.0-36.0); Mean Corpuscular Volume 92.2 fL (80.0-100.0); Mean Platelet Volume 11.7 fL (9.4-12.4); Monocytes # (auto) 1.01 K/uL (0.11-0.59); Monocytes % (auto) 7.7 %; Neutrophils # (auto) 6.55 K/uL (1.40-6.50); Neutrophils % (auto) 49.9 %; Platelet Count 198 K/uL (130-400); RDW Coefficient of Variation 11.9 % (11.5-14.5); RDW Standard Deviation 40.4 fL (36.4-46.3); Red Blood Count 4.88 M/uL (4.70-6.10); White Blood Count 13.14 K/ul (4.8-10.8)
[2023-05-24 04:52] LABS: Creatinine Clr Calc Pharmacy 100.5 ml/min; Potassium 4.1 mmol/L (3.5-5.1)
--- NOTE | 2023-05-24 12:59 | XCELERA ---
[id number] \\[id number]
--- NOTE | 2023-05-24 14:09 | Hospitalist Progress Note ---
Date of Service May 24, 2023 Assessment & Plan (1) ST elevation (STEMI) myocardial infarction: Plan: Status post PCI, drug-eluting stent placement, distal left circumflex No recurrence of chest pain Echocardiogram: Pending Continue aspirin, Brilinta, metoprolol, atorvastatin Hypertension Elevated Continue Toprol May need additional antihypertensive Monitor close prostate cancer status post surgery Pre-DM A1c 6.1 Monitor closely as an outpatient, low-carb diet ongoing tobacco abuse Counseling regarding cessation done DVT prophylaxis SCDs Full code Disposition Anticipated discharge to home once cleared by interlocking machine operator Admission and Anticipated Discharge Date Admission Date: May 23, 2023 Subjective Follow-up ST elevation [place], status post PCI, status postplacement of drug-eluting stent to left circumflex, etc. Seen resting in bed, comfortable, not in distress Sleeping, easily awakened States he feels fine overall No recurrence of chest pain No palpitations, dizziness, nausea No headache No other new symptoms Review of Systems Review of Systems: all noted and negative except for above Physical Exam Physical Exam: General- oriented x 3, not in distress, speaks in sentences with no effort or accessory muscle use Eyes- anicteric Neck- no JVD Lungs- clear breath sounds bilaterally, no crackles or wheeze Heart- normal rate, regular rhythm; no murmurs Abdomen- normal bowel sounds, nondistended, soft, no tenderness Extremities- no pretibial edema, no calf tenderness Neuro- alert, oriented x 3; no gross focal neurologic deficits Skin- warm & dry Results & Data Results & Data Vital Signs (Past 12 Hours) Vital Signs Temp Pulse Resp BP Pulse Ox O2 Del Method 05/24/23 12:21 36.6 C 05/24/23 12:07 146/86 H 05/24/23 12:07 67 17 97 05/24/23 08:09 141/73 H 05/24/23 08:09 69 15 95 Room Air 05/24/23 08:09 36.6 C 05/24/23 08:00 75 05/24/23 04:00 62 13 161/80 H 05/24/23 03:00 64 24 all noted and reviewed including below
[2023-05-24] MEDS: LORazepam 0.5 MG TAB PO PRN (20:58)
[2023-05-25 05:01] LABS: Hematocrit (blood only) 44.5 % (42.0-52.0); Hemoglobin 15.3 g/dl (14.0-18.0); Mean Corpuscular Hemoglobin 31.7 pg (25.0-34.0); Mean Corpuscular Hgb Conc 34.4 g/dL (32.0-36.0); Mean Corpuscular Volume 92.3 fL (80.0-100.0); Mean Platelet Volume 11.7 fL (9.4-12.4); Platelet Count 208 K/uL (130-400); RDW Coefficient of Variation 11.7 % (11.5-14.5); RDW Standard Deviation 39.9 fL (36.4-46.3); Red Blood Count 4.82 M/uL (4.70-6.10); White Blood Count 13.45 K/ul (4.8-10.8)
[2023-05-25 05:10] LABS: BUN Creatinine Ratio 22.4 (10-20); Calcium 9.1 mg/dl (8.6-10.3); Creatinine Clr Calc Pharmacy 97.8 ml/min; Est GFR (African American) 115.7 ml/min; Est GFR (Non-African American) 99.9 ml/min
[2023-05-25 05:50] LABS: Basophils # (auto) 0.05 K/uL (0.00-0.20); Basophils % (auto) 0.4 %; Eosinophils # (auto) 0.57 K/uL (0.00-0.50); Eosinophils % (auto) 4.2 %; Immature Granulocytes # (auto) 0.09 K/uL (0.01-0.20); Immature Granulocytes % (auto) 0.7 %; Lymphocytes # (auto) 5.17 K/uL (1.20-3.40); Lymphocytes % (auto) 38.4 %; Monocytes # (auto) 1.15 K/uL (0.11-0.59); Monocytes % (auto) 8.6 %; Neutrophils # (auto) 6.42 K/uL (1.40-6.50); Neutrophils % (auto) 47.7 %
--- NOTE | 2023-05-25 11:05 | Cardiology Consultation ---
Date of Consultation May 25, 2023 Assessment & Plan (1) ST elevation (STEMI) myocardial infarction: (2) Multiple vessel coronary artery disease: (3) Dyslipidemia, goal LDL below 70: (4) Tobacco abuse: (5) Benign essential hypertension: Plan 58-year-old male admitted with acute ST elevation myocardial infarction. Left circumflex treated with overlapping drug-eluting stents without complication. Otherwise, moderate to severe diffuse coronary artery disease including 50 to 70% proximal and mid LAD, 80% apical LAD (not amenable to PCI due to small caliber vessel) 50% ostial D1, and 50 to 70% mid RCA. Echocardiogram demonstrating preserved LV function with lateral wall hypokinesis. Discussed importance of continuing dual antiplatelet therapy for minimum of 1 year post percutaneous intervention. Discontinue metoprolol to tartrate 25 mg twice daily in favor of Toprol-XL 50 mg daily. Titrate atorvastatin to 80 mg daily. Add low-dose angiotensin receptor elly, losartan 12.5 mg daily. Repeat basic metabolic panel 1 week post discharge. Add sublingual nitroglycerin as needed. Close cardiology follow-up within 2 weeks of discharge. Patient will remain off work until follow-up assessment. Consider referral to cardiac rehab at that time. Smoking cessation advised. Residual moderate to severe diffuse coronary artery disease noted. Consider further ischemic evaluation (nuclear stress testing versus exercise stress echo) at follow-up. All questions answered to patient's satisfaction. I spent a total of 55 minutes on the date of service in preparation, delivery, and documentation of the care provided to this patient, excluding any time spent in the performance of separately billed services. History of Present Illness Reason for Consultation: STEMI Requesting Physician: Dr. Gonzalez Attending Physician: Aaron Gonzalez MD History of Present Illness 58-year-old male admitted in the evening 05/22/[address] elevation [place]. Patient taken to the cardiac catheterization lab emergently by Dr. Davis. Culprit vessel, 100% distal left circumflex with otherwise diffuse moderate to severe coronary disc disease as described below. Patient treated with 2 overlapping drug-eluting stents without complication. Chest pain-free since stent implantation. Feeling well from a cardiovascular standpoint this morning. Denies chest pain or unusual shortness of breath. Telemetry reveals sinus rhythm without dysrhythmia. Tolerating current medications. Admits to active tobacco use. Also reports significant family history of premature coronary artery disease involving 2 siblings (1 in 30s, other in 40s) as well as multiple male cousins. Prior to hospitalization, patient was not treated with statin therapy. Allergies Allergy/AdvReac Type Severity Reaction Status Date / Time amoxicillin Allergy Severe rash Verified 05/22/23 23:40 extensive Home Medications Medication Instructions Recorded Confirmed Type aspirin 81 mg tablet,delayed 81 mg PO QAM #90 tabs 05/24/23 Rx release atorvastatin 40 mg tablet 40 mg PO QAM #90 tabs 05/24/23 Rx metoprolol tartrate 25 mg tablet 25 mg PO BID #180 tabs 05/24/23 Rx ticagrelor 90 mg tablet (Brilinta) 90 mg PO BID 30 days #60 tabs 05/24/23 Rx nicotine 21 mg/24 hr daily 21 mg transdermal QAM #28 ea 05/25/23 Rx transdermal patch (Nicoderm CQ) Patient History Medical History (Updated 05/25/23 @ 10:57 by Fito Flores DO) Cancer of prostate Cervical myofascial pain syndrome Degenerative cervical spinal stenosis Surgical History H/O prostatectomy Family History Mother , age 76 renal failure No problems noted. Father , unknown No problems noted. Sister No problems noted. Social History Smoking Status: Current every day smoker Tobacco Type: Cigarettes Age Started Using Tobacco: 19; packs per day: 1; Cigarettes Per Day: 20; Second Hand Exposure: No; Do You Dip or Chew Tobacco: No; Hx Alcohol Use: Yes Alcohol type: beer Alcohol Intake Frequency Comment: social Hx Substance Use: No Preferred Language: Ukrainian Communication Ability: Effective Visual Impairment: No Limitations Hearing Ability: Normal Journalism Instructor Required: No Beliefs That Will Affect Care: None marital status: Single Current Living Situation: Significant Other Current Living Situation Comment: Patient lives with significant other current occupational status: employed 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[employer] [place] Feels Safe at Home: Yes Childhood Exposure to Second-Hand Smoke: No caffeine: Yes (several cups per day) during the past year weight has: remained stable Dental Care, Regularly: No Physical Activity Frequency: Does not Exercise Seatbelt Use: sometimes Sunscreen Use: No Assistive Devices: None Review of Systems Review of Systems: All systems reviewed & are unremarkable except as noted in Subjective Physical Exam Constitutional: well nourished; no acute distress Respiratory: no respiratory distress, no labored breathing and no retractions Auscultation: lungs clear to auscultation bilaterally; no crackles, no rales, no rhonchi and no wheezes Cardiovascular: Rate/Rhythm: regular rate and regular rhythm Heart Sounds: normal S1 and normal S2; no murmur Palpation: normal PMI Vessels: radial pulses present; no JVD and no carotid bruit Extremities: no edema Gastrointestinal (Abdomen): Inspection/Auscultation: abdomen normal to inspection and normal bowel sounds; abdomen not distended Percussion /Palpation: abdomen soft; abdomen nontender, no guarding and abdomen not rigid Neurologic: CN's II-XI intact bilaterally and moves all extremities; no focal motor deficits Results & Data Vital Signs (Past 12 Hours) Vital Signs Temp Pulse Resp BP Pulse Ox O2 Del Method 05/25/23 08:00 36.7 C 71 16 135/80 96 Room Air Laboratory Results CBC 05/25/23 Range/Units 04:41 WBC 13.45 H (4.8-10.8) K/ul RBC 4.82 (4.70-6.10) M/uL Hgb 15.3 (14.0-18.0) g/dl Hct 44.5 (42.0-52.0) % Plt Count 208 (130-400) K/uL Neut # (Auto) 6.42 (1.40-6.50) K/uL Lymph # (Auto) 5.17 H (1.20-3.40) K/uL [place] # (Auto) 1.15 H (0.11-0.59) K/uL Eos # (Auto) 0.57 H (0.00-0.50) K/uL Baso # (Auto) 0.05 (0.00-0.20) K/uL Comprehensive Metabolic Panel 05/25/23 Range/Units 04:41 Sodium 138 (136-145) mmol/L Potassium 4.0 (3.5-5.1) mmol/L Chloride 106 (98-107) mmol/L Carbon Dioxide 25 (21-32) mmol/L BUN 17 (6-23) mg/dl Creatinine 0.76 (0.6-1.4) mg/dl Glucose 107 H (70-99(Fasting)) mg/dl Calcium 9.1 (8.6-10.3) mg/dl Intake and Output 05/24/23 05/25/23 05/25/23 22:59 06:59 14:59 Intake Total 500 / 500 Balance 500 / 500 Intake: Oral 500 / 500 Other: # Unmeasured Voids 1 Weight 77 kg Diagnostic Findings Cardiac catheterization report summary 05/23/2023: Left Main (% Stenosis): Normal LAD (% Stenosis): Proximal (50 to 70%), Mid (50 to 70%) and Distal (80%) D1 (% Stenosis): Ostial (50%) Circumflex (% Stenosis): Mid (50%) and Distal (100%) OM1 (% Stenosis): Normal OM2 (% Stenosis): Normal L PL1 (% Stenosis): Normal RCA (% Stenosis): Proximal (40%) and Distal (60 to 70%) R PDA (% Stenosis): Normal (Scattered up to 50%) (1) ST elevation (STEMI) myocardial infarction Involved coronary artery: left circumflex coronary artery Qualified Code(s): I21.21 - ST elevation (STEMI) myocardial infarction involving left circumflex coronary artery
--- NOTE | 2023-05-25 14:20 | Discharge Summary ---
Date of Service May 25, 2023 Admission HPI Per Admitting Provider History obtained from patient and records. Medical history significant for prostate cancer status post surgery, ongoing tobacco abuse. Patient noted progressive chest heaviness today with radiation to both arms. No shortness of breath. Not related to exertion. No cough symptoms. Patient later on noted sweatiness. May have had a transient episode 2 weeks ago. No consultations done. Patient brought to the ER for evaluation by family. ST elevation inferior leads noted on EKG. Heart alert subsequently activated. Medical History as above Surgical History : Pelvic lymphadenectomy, radical prostatectomy, finger amputation Family History : Heart disease, DM Personal/Social history : 1 pack daily, occasional EtOH intake Admission Exam Per Admitting Provider GENERAL: Slightly uncomfortable, pleasant, no respiratory distress SKIN: Normal color, warm HEENT: [place] palpebral conjunctivae, no ptosis, moist buccal mucosa NECK : Supple, no tenderness CHEST : CTA, no tenderness HEART : RRR, no obvious murmurs ABDOMEN: Some distention, nontender EXTREMITIES : No LE swelling/tenderness, amputation stump, left index finger NEUROLOGIC : Coherent, no facial asymmetry, no other gross focality Principal Diagnosis STEMI status post left circumflex MARY Discharge Exam Constitutional: WD/WN, vitals as above, NAD, sitting up in bed, pleasant, conversing easily Respiratory: normal respiratory effort, lungs clear to auscultation, no wheeze, rales, rhonchi. Normal insp/exp effort, no accessory muscle use Cardiovascular: RRR, no murmur, no edema Vessels: no JVD or carotid bruit Chest: normal inspection of chest Abdomen: normal bowel sounds, soft, nontender, no hepatosplenomegaly Musculoskeletal: no cyanosis or clubbing, extremities motor strength 5/5 Skin: no rashes, warm and dry normal turgor Neurologic: PERRL, EOMI, accommodation nl, no face palsy, no dysarthria CN's II- XI intact bilaterally and moves all extremities Psychiatric: A+Ox3, euthymic affect Discharge Data Allergies Allergy/AdvReac Type Severity Reaction Status Date / Time amoxicillin Allergy Severe rash Verified 05/22/23 23:40 extensive Consultations 05/23/23 01:07 Consult Radiotelegraph Operator Servicer Routine 05/23/23 01:52 Consult Radiotelegraph Operator Servicer Routine 05/23/23 08:01 Consult Cardiology Routine 05/25/23 07:43 Consult Cardiology Routine Procedures Performed Operation Date: 05/22/23 11:55 Actual Procedures p Cineradiography w/Routine Exam - Ted Davis MD, PhD p Aspiration/PCI w/MARY for Stemi - Ted Davis MD, PhD s Cath, Coronaries ONLY (no LV) - Ted Davis MD, PhD s Ultrasound Vascular Access - Ted Davis MD, PhD Ordered Studies 05/22/23 23:55 CL Cath Imgs for PACS use only Stat Hospital Course (1) ST elevation (STEMI) myocardial infarction: Status post PCI, drug-eluting stent placement, distal left circumflex Patient presented with chest pain with radiation to the arm. He was diagnosed with acute ST elevation myocardial infarction; underwent emergent PCI. Left circumflex treated with overlapping drug-eluting stents without complication. Otherwise, moderate to severe diffuse coronary artery disease including 50 to 70% proximal and mid LAD, 80% apical LAD (not amenable to PCI due to small caliber vessel) 50% ostial D1, and 50 to 70% mid RCA. Echocardiogram showed EF of 55 to 60% with mild lateral wall hypokinesis. Patient was started on dual antiplatelet therapy with aspirin and Brilinta, Lip itor,Metoprolol and losartan as per cardiology recommendation. Discussed importance of smoking cessation. Provided prescription for nicotine replacement therapy. Patient to follow-up with PCP and obtain BMP 1 week after discharge. Patient to follow-up with cardiology as outpatient as well Please note the above document was generated using voice recognition software. It may contain grammatical, syntax or spelling errors. Any formal questions or concerns about the content, text or information contained within the body of this dictation should be directly addressed to the provider for clarification Total Time Total Time Spent Total Time Spent (In Minutes): 45 Total Time Includes: Examination of the Patient, Discharge Planning, Medication Reconciliation, Communication With Other Providers and Other Discharge Plan Discharge Items Patient Disposition: Home - Self-Care Reason For Visit: ACS Discharge Diagnosis: STEMI CAD HTN HLD Activity: Per Instructions section Non-emergency contact: Dispatch Associate Call non-emergency contact if: you have any medication questions, your symptoms worsen, your pain is not controlled, you have a fever, your wound has increased redness and your wound has increased drainage Follow-up/Referrals: Fito Flores DO [Dispatch Associate] - (The Cardiology office will contact you for a follow up appointment.) Dionicio Haddad MD [Primary Care Provider] - (Date & Time 05/27/2023 3:30 PM Provider Dionicio Foss MD [facility] ) Diet: Heart Healthy [facility] Attending Provider Instructions: You were admitted to the hospital due to heart attack. You underwent cardiac cath with placement of a stent. You are prescribed following medications: 1) Aspirin 81 mg once a day 2) Brilinta 90 mg twice a day 3) Lipitor 80 mg once a day 4) Metoprolol 50 mg once a day. 5) Losartan 12.5 mg once a day. You have been prescribed nicotine patch to be used daily. You can also use nicotine gum as well as needed. Also, you can discuss with your primary care doctor regarding Chantix. Please continue your attempts to quit smoking. Please measure your blood pressure daily. Please be in a sitting position with both feet on your ground and your arm rested. Make a note of it and follow-up with your primary care doctor. ACTIVITY RECOMMENDATIONS: Excess manipulation of the wrist should be avoided for the next 24-48 hours. * No strenuous activity such as bowling or tennis for 3 days. * Keep the site of the procedure covered with a bandage for 24 hours. *You may shower the day after the procedure. Do not take a tub bath or submerge the puncture site in water for the next 3 days. *Do not operate any motorized equipment for 3 days. SPECIAL CARE INSTRUCTIONS: The site may be slightly bruised and sore following your procedure. Should any of the following occur, contact the Dr. who performed your procedure. 1. Redness/inflammation, swelling, chills, or fever, or colored drainage at procedure site within 3-7 days after your procedure. 2. Coldness, discoloration, ongoing numbness, severe pain, or swelling. Expect mild tingling of hand and tenderness at the puncture site for up to three days. If this persists beyond three days, or other symptoms develop, notify the Dr. who performed your procedure. BLEEDING: If the procedure site on your wrist begins to bleed, do not panic 1. Place 1 or 2 fingers firmly just slightly above the insertion site to stop the bleeding. You may be able to feel your pulse as you hold pressure. 2. Lift your finger after 5 minutes to see if the bleeding has stopped. 3. Once the bleeding has stopped, gently wipe the wrist area clean with a bandage. * If the bleeding from your wrist does not stop after 10 minutes, or if there is a large amount of bleeding or spurting, call 911 (do not drive yourself to the hospital). SKIN IRRITATION: * You may experience some redness and/or swelling in the area where radiation was administered. If any skin irritation occurs, please contact your family physician. FOLLOW UP VISIT: Keep any scheduled doctor appointments. Pending Studies at Discharge: No Stand-Alone Forms: My [facility], Smoking Cessation Medications and DC Order Prescriptions: New Brilinta 90 mg Tablet 90 mg PO BID 30 Days Qty: 60 1RF aspirin 81 mg Tablet,Delayed Release (Dr/Ec) 81 mg PO QAM Qty: 90 3RF nicotine [Nicoderm CQ] 21 mg/24 hr Patch 24 Hour 21 mg transdermal QAM Qty: 28 0RF atorvastatin [Lipitor] 80 mg tablet 80 mg PO DAILY Qty: 30 0RF metoprolol succinate 50 mg tablet extended release 24 hr 50 mg PO DAILY Qty: 30 0RF losartan 25 mg tablet 12.5 mg PO DAILY Qty: 60 0RF Discharge Orders: Discharge Order (Routine); Ordered 05/25/23 Ordered By: Aaron Hunter/Other Patient Handouts: Prediabetes, 5 Steps for Eating Healthier Admission Data Admit Date/Time: 05/23/23 00:24 Attending Provider: Aaron Gonzalez Admit Provider: Jamel Sherwood Primary Care Provider: Dionicio Haddad Other Providers: Selvin Chanel; Eren Roche; Stuart Padilla; Arnulfo Yoon; Angelito White; Roselia Sheets; Brad Patricio; Yusra Bernal; Zena Diane; Kelvin Barton; Gustavo Silveira; June Giraldo; Ted Davis; Madelyn Mckinley; Ted Smith; Jacky Rios; Fito Flores; Ray Young; Ayaan Cannon; Alysia Mcallister; Ale Aranda; Madelyn Virgen; Ángel Waterman; Tacho Boston; Nancy Fernandez; Tatiana Serrano; Deven Thorpe; Garrett Buckner Other Interventions: Discharge Summary Assessment (RN) Last Done: 05/25/23 11:33
== END 2023-05-25 12:50 | disposition home or self-care (01) | DRG 322 ==
LOC: ED 23:22 → CC 05-23 00:03 → 1E 05-23 00:03 → SUATTDRO 05-23 00:24 → 1E 05-23 00:24
PROC: CLB.CCO (2023-05-22 11:55)